=== PATIENT | male | born 1945 | race Caucasian/White ===

== ENCOUNTER → 2019-07-17 | Outpatient (CLI) | payer OTHER ==
--- NOTE | 2019-07-18 00:02 | ECHO ---
DATE OF PROCEDURE: 07/17/2019 DATE OF : 1945 AGE: 74 REFERRING PROVIDER: SU Wolf at [facility] REASON FOR THE ECHOCARDIOGRAM: Hypertension. 2D MEASUREMENTS: IVS: 1.3 cm LV: 4.8 cm LVPW: 1.3 cm LA: 4.2 cm Aorta: 3.1 cm IVC: 2.0 cm DOPPLER MEASUREMENTS: Peak velocity across the aortic valve: 1.9 meters per second Peak velocity across the LVOT: 0.8 meters per second Peak gradient across the aortic valve: 15 mmHg Mean gradient across the aortic valve: 8 mmHg Mitral E: 1.1, Mitral A: 0.75 with a ratio of 1.4 Maximum tricuspid valve velocity: 2.6 meters per second 2D COMMENTS: 1. Normal left ventricular size with mildly increased left ventricular wall thickness and a normal global left ventricular systolic function. The estimated left ventricular systolic ejection fraction is 60-65%. 2. Mildly enlarged left atrium. Normal right atrium and right ventricle. 3. The atrial septum appeared to be normal without evidence of defect or shunt. 4. Normal aortic root. 5. No pericardial effusion seen. 6. Mildly calcified aortic valve with normal leaflet excursion. Mildly calcified mitral annulus with normal anterior mitral valve leaflet motion. Normal tricuspid valve and pulmonic valve. The proximal pulmonary artery branches were not well visualized. 7. The inferior vena cava is borderline enlarged, central venous pressure might be elevated. DOPPLER: It reveals mild mitral regurgitation, mild tricuspid regurgitation, and trace pulmonic regurgitation. The calculated pulmonary artery systolic pressure varies between 30-40 mmHg. Abnormal relaxation pattern was noted across the mitral valve annulus consistent with features of grade 2 left ventricular diastolic dysfunction, left ventricular end-diastolic pressure might be elevated. IMPRESSION: 1. Normal global left ventricular systolic function with mild concentric left ventricular hypertrophy. There were some features of left ventricular diastolic dysfunction, grade 2. 2. Mildly dilated left atrium with mitral annulus calcification and mild mitral regurgitation. 3. Aortic valve sclerosis with trivial aortic stenosis but no aortic regurgitation. 4. Mild tricuspid regurgitation with mild pulmonary hypertension. 5. Trace pulmonic regurgitation.
== END ==
LOC: M CARPUL 09:33
PROVIDERS: ATTEND Registered Nurse Community Health
DX: I12.9 Hypertensive chronic kidney disease with stage 1 through stage 4 chronic kidney disease, or unspecified chronic kidney disease (principal); D64.9 Anemia, unspecified

== ENCOUNTER → 2019-08-10 | Outpatient (CLI) | payer OTHER ==
--- NOTE | 2019-08-10 09:23 | REP ---
RENAL ULTRASOUND WITH DUPLEX DOPPLER RENAL ARTERY EVALUATION: Real-time ultrasound evaluation of the kidneys performed and demonstrates both kidneys to be normal in size and echotexture, right kidney measuring 1.3 x 5.1 x 4.8 cm and left kidney 10.5 x 4.1 x 4.9 cm. There is no hydronephrosis bilaterally. There appears to be an extrarenal pelvis on the right. Cyst in the mid right kidney measures 1.7 x 2.2 x 5 cm and another cyst in the lower pole measures 1 cm in diameter. Prostate measures 3.6 x 3.4 x 4.9 cm for a total volume of 31.4 mL. Ureteral jets are not visualized in the urinary bladder with Doppler color evaluation. Real-time ultrasound evaluation and duplex Doppler interrogation of the renal arteries is performed bilaterally. Peak systolic velocity of the abdominal aorta at the level of the renal arteries is 75.2 cm/s. Peak systolic velocity in the right renal artery is 143 cm/s, renal to aortic ratio 1.9. Resistive indices are measured in the upper, mid, and lower thirds of the right kidney, right kidney 0.81 to 0.90, acceleration times range between 0.03 to 0.05. Peak systolic velocity of the main left renal artery is 85.3 cm/s, renal to aortic ratio 1.13. Origin of the left renal artery is not visualized due to overlying bowel gas. Resistive indices of the left kidney range between 0.82 and 0.84. Acceleration times range between 0.036 and 0.38. Incidental note is made of early bifurcation of the main right renal artery at its mid aspect. IMPRESSION: No hydronephrosis. Two cysts, right kidney. No compelling duplex Doppler sonographic evidence of significant renal artery stenosis. Electronically Signed by Flex Riggs MD 08/10/2019 11:44 A
== END ==
LOC: M RAD 06:21
PROVIDERS: ATTEND Internal Medicine Nephrology
DX: N18.3 Chronic kidney disease, stage 3 (moderate) (principal); I15.0 Renovascular hypertension; N28.1 Cyst of kidney, acquired

== ENCOUNTER → 2019-11-01 | Outpatient (CLI) | payer OTHER ==
[~2019-11-01] MED LIST: PROHANCE 279.3MG/ML 5ML VIAL (A9576) As Ordered ONE
--- NOTE | 2019-11-01 11:25 | REP ---
MRCP exam: MRI abdomen without and with contrast. History: History of CBD stenosis. Abnormal LFTs. No comparison imaging is available. Technique: MRCP acquisition is acquired and maximum intensity projection images are generated. Axial and coronal T1 and T2-weighted scans are obtained. Sequences include spin-echo, fast spin echo, gradient echo, in and [id number] images, and dynamically acquired sequential post contrast images. The gadolinium enhancement dose is 8 mL of intravenous ProHance. MRCP findings: There is moderate intrahepatic and proximal extrahepatic biliary ductal dilation. There is a tapered stricture in the common bile duct proximally just below the juan. The distal common bile duct is seen and normal in caliber in the pancreatic head. The level of the stricture appears to be just superior to the margin of the pancreas. There is mild low signal intensity mass effect on coronal and axial T2-weighted scans at the level of the stricture. There is no evidence of choledocholithiasis. The gallbladder is not seen consistent with surgical absence. No focal liver lesion is seen. Spleen is unremarkable. No adrenal lesion is observed. Parapelvic cysts are seen in the right kidney. Pancreas protocol images. Pre and postcontrast images of the liver and pancreas show contrast enhancement in the lining of the tapered CBD at the level of the stricture. No polypoid intraluminal defect is seen. There are two identifiable lymph nodes adjacent to the biliary stricture in the periportal peripancreatic soft tissues. These measure 10 and 7 mm in short axis dimension respectively. No intrapancreatic mass lesion is observed. The main pancreatic duct is 2-3 mm in caliber. No pancreatic fluid collection is observed. There is some atherosclerotic irregularity in the proximal celiac and SMA branches. No arterial occlusion is seen. The right renal artery is duplicated. Incidental note is made of a filling defect in the intrarenal collecting system of the left kidney. This may be a urothelial neoplasm, a renal pelvic polyp or stone, or conceivably, thrombus. Impression: 1. 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 No pancreatic mass lesion is seen. There are two adjacent lymph nodes however. Pancreatic duct is not significantly dilated. 2. There is a filling defect in the left renal pelvis measuring approximately 12 x 17 mm of uncertain etiology. Consider retrograde pyelogram. There is a parapelvic cyst on the right. Electronically Signed by Fermin Cortez MD 11/01/2019 04:07 P
== END ==
LOC: M RAD 08:06
PROVIDERS: ATTEND Internal Medicine Gastroenterology
DX: K83.1 Obstruction of bile duct (principal)
CPT/HCPCS: 74181; 74183; A9576

== ENCOUNTER → 2020-11-22 | Outpatient (CLI) | payer MEDICARE, OTHER | LOC: M LABSMTC 12:14 | PROVIDERS: ATTEND Nurse Practitioner Family | DX: Z11.52 Encounter for screening for COVID-19 (principal) ==

== ENCOUNTER → 2020-11-28 | Outpatient (CLI) | payer OTHER | LOC: M LABSMTC 09:31 | PROVIDERS: ATTEND Student in an Organized Health Care Education/Training Program | DX: Z01.812 Encounter for preprocedural laboratory examination (principal); Z20.822 Contact with and (suspected) exposure to COVID-19; K83.1 Obstruction of bile duct ==

== ENCOUNTER 2020-12-06 11:37 | Observation (INO) | payer OTHER ==
[~2020-12-06] VITALS: Ht 167.6 cm; Wt 83.2 kg
[2020-12-06] MEDS ORDERED: SPIR-10 PO (11:52)
[2020-12-06] MEDS ORDERED: CHLO125TA PO (11:52)
[2020-12-06] MEDS ORDERED: GLIP5TAB8 (11:52)
[2020-12-06] MEDS ORDERED: TAMS1CAP17 (11:52)
[2020-12-06] MEDS ORDERED: AMLO1TAB25 PO (11:52)
[2020-12-06] MEDS ORDERED: CAPT1TAB17 PO (11:52)
--- NOTE | 2020-12-06 12:15 | REP ---
INDICATION: SEPSIS/SHOCK. COMPARISON: None TECHNIQUE: Portable AP chest with the patient sitting. FINDINGS: The lung atkins are clear. Cardiac size is normal. The raghu, mediastinum and skeletal structures are unremarkable. IMPRESSION: Essentially negative portable chest <Electronically signed by Flex Salas > 12/06/20 [id number]
[2020-12-06 12:34] LABS: HEMATOCRIT 33.5 % (42.0-52.0); HEMOGLOBIN 10.4 g/dl (13.5-17.5); MEAN CORPUSCULAR HEMOGLOBIN 27.4 pg (27.0-33.0); MEAN CORPUSCULAR VOLUME 88.4 fl (80.0-96.0); RED BLOOD COUNT 3.79 10^6/uL (4.30-6.10); WHITE BLOOD COUNT 9.7 10^3/uL (4.0-10.0)
[2020-12-06 12:40] LABS: INR 1.04; PROTHROMBIN TIME 13.8 SECONDS (12.5-14.3)
[2020-12-06 12:41] LABS: PARTIAL THROMBOPLASTIN TIME 31.1 SECONDS (24.2-38.5)
[2020-12-06 12:48] LABS: PLATELET COUNT, AUTOMATED 82 10^3/uL (150-450)
[2020-12-06 12:52] LABS: EOSINOPHILS 2 % (0-3); LYMPHOCYTES 7 % (16-44); MONOCYTES 7 % (0-5); NEUTROPHILS 84 % (28-66); PLATELET ESTIMATE DECREASED (NORMAL)
[2020-12-06 12:53] LABS: ANISOCYTOSIS 1+
[2020-12-06 12:56] LABS: ALT/SGPT 86 U/L (12-78); AMYLASE 41 U/L (25-115); BILIRUBIN,DIRECT 0.3 MG/DL (0.0-0.2); BILIRUBIN,TOTAL 0.6 MG/DL (0.2-1.0); BLOOD UREA NITROGEN 51 MG/DL (7-18); CALCIUM LEVEL 8.2 MG/DL (8.8-10.2); CARBON DIOXIDE LEVEL 21 MEQ/L (21-32); CHLORIDE LEVEL 107 MEQ/L (98-107); CK-MB VALUE MASS < 1.0 NG/ML (<3.6); CPK CREATINE PHOSPHOKINASE 38 U/L (39-308); GLOMERULAR FILTRATION RATE 39.2 (>42); GLUCOSE, FASTING 153 MG/DL (70-100); MB/CK RELATIVE INDEX 2.63 (< OR =4); POTASSIUM SERUM 3.8 MEQ/L (3.5-5.1); SODIUM LEVEL 137 MEQ/L (136-145); TOTAL PROTEIN 6.4 GM/DL (6.4-8.2); TROPONIN I < 0.02 NG/ML (< 0.10)
[2020-12-06 12:57] LABS: C REACTIVE PROTEIN QUANTITATIV 9.53 MG/DL (0.00-0.30)
[2020-12-06] MEDS ORDERED: IMIPENEM/CILASTATIN 500 MG in D5W MINI-BAG PLUS 100 ML IV ONE (13:15)
[2020-12-06] MEDS ORDERED: GLIP2.5T6 PO (13:32)
[2020-12-06] MEDS ORDERED: NS 1,000 ML IV ONE (13:55)
[2020-12-06 14:21] LABS: RSV AMPLIFICATION NEGATIVE (NEGATIVE)
[2020-12-06] MEDS ORDERED: ACETAMINOPHEN TAB 650MG DOSE (2X325MG) PO PRN (15:55)
[2020-12-06] MEDS ORDERED: MOM 30ML SUSPENSION UDC PO PRN (15:55)
[2020-12-06] MEDS ORDERED: MAALOX 30 ML SUSP *UDC PO PRN (15:55)
--- NOTE | 2020-12-06 16:56 | HPEPDOC ---
[facility] Medical History & Physical Date of Admission Dec 06, 2020 Date of Service: Dec 06, 2020 History and Physical CHIEF COMPLAINT: fevers, chills. positive blood cultures at outside hospital. HISTORY OF PRESENT ILLNESS: 75 yo M with a hx of HTN, DM2, CKD 3, testiculara cancer, liver disease (unspecified), numerous biliary stents/ERCP, presented to [facility] after he was informed of positive blood cultures from [facility], for enterobacteriacea/E.coli from 12/05/20. Patient received a liver biopsy at [facility] for workup of possible hepatic malignancy. He developed fevers, chills, malaise and diarrhea, with a Tmax at home of 102. On arrival to [facility] 12/05/20, CT abdo did now show acute hepatic abnormality (ie hematoma, abscess). Blood cultures were drawn, 1/2 bottles positive and transfered to [facility]. He was DC with PO keflex. On 12/06/20, lab called patient to inform of positive enterobacteriacea/E.coli in 1/2 culture bottles. patient did not wish to return to [facility] or [place], told to come to [facility]. Patient reports mild abdominal discomfort, as well diarrhea, without fevers, chills, n/v/d, chest pain, or shortness of breath. patient denies blood per rectum. he is afebrile. Labs reviewed. WBC 9.7. Hgb 10.4. Hct 33.5. PLT 82. Na 137. K 3.8. BUN 51. cr 1.80. 42. ALT 86. ALP 233. D bili 0.3. T bili 0.6. Blood cultures drawn. pateint was given one dose of imipenem. Patient is a poor historian. Request records from [facility] for completeness. Patient will be admitted for observation 2/2 possible E coli bacteremia. PAST MEDICAL HISTORY: HTN DM2 CK3 Liver disease Heart disease PAST SURGICAL HISTORY: ERCP Lithotripsy SOCIAL HISTORY: Denies smoking, etoh use, illicits FAMILY HISTORY: reviewed with patient, denies relevant family history ALLERGIES: Please see below. REVIEW OF SYSTEMS: 10 point ROS completed, relevant findings noted in the HPI HOME MEDICATIONS: Please see below. PHYSICAL EXAMINATION: VITAL SIGNS: please see below General: NAD, comfortable HEENT: PERRLA, EOMI, sclerae clear Neck: supple, normal ROM, no JVD Respiratory: lungs CTAB, no wheeze, no rales, no crackles CVS: RRR, normal S1, S2, no murmurs Abdo: mild RUQ tenderness, no organomegaly, no rigidity, no rebound tenderness Extremities: no edema, pulses 2+ MSK: no joint deformities, normal ROM Neuro: no focal neuro deficits, moving all 4 extremities, CN2-12 intact. Strength 5/5 in all 4 extremities. No nystagmus. Psych: calm, cooperative, AAO x 3 LABORATORY DATA: See below. IMAGING: CXR (12/06/20): FINDINGS: The lung atkins are clear. Cardiac size is normal. The raghu, mediastinum and skeletal structures are unremarkable. IMPRESSION: Essentially negative portable chest MICROBIOLOGY: Please see below. ASSESSMENT: 75-year-old male with a past medical history of hypertension, diabetes type 2 CK3 D3. Recent biopsy of the liver. On 12/02/20, presenting from [facility] with 1 out of 2 positive blood cultures for Escherichia coli/Enterobacteriaceae. Given one dose of imipenem. Admitted to hospitalist service.\ PLAN: #Transient Bacteremia with Enterobacteriacea/E coli - detected in 1/2 cultures at [facility] - in context of liver bx at [facility] on 12/02/20 - patient experience fevers, chills, and diarrhea since then - no hx of abx use - s/p imipenem in ER - blood cultures sent prior to abx - patient is presently afebrile without leukocytosis - CT abomen obtain at [facility] on 12/05/20 not showing acute hepatic or biliary abnormality - will obtain Liver US to assess for developed of perihepatic/capsular collection vs hematoma - if develops fevers, leukocytosis, will repeat CT abdio - obtain records from [facility] upsate - D/w esperanza Muniz to continue meropenem. Will await final C&S if available from [place] or at [facility]. #Transaminitis - mild AST/ALT - ALP 233 - per patient, GI at [facility] working up questionable liver mass? - no mass seen on CT abdo at [place] on 12/06/20 - will f/u with GI at [facility] on DC - trend CMP #Anemia - Hgb 10.4, improved from 12/05/20 at [facility] (up from 9.5) - check iron, folate, b12 - check fecal occult blood #CKD 3: - Cr 1.80. - baseline unknown at this time - avoid nephrotoxins #HTN - BP 156/72 at this time - home regimen: amlodipine 10 mg daily, captoprol 25 mg bid, chlorthalidone 25 mg 12.5 mg 3xw, spironolactone 12.5 mg 3xw - resume amlodipine - will obtain labs from OSH, resume captopril, chlorthalidone and spironolactone once baseline Cr is known #DM2 - ISS, AC and HS - CC diet - hold oral meds #Thrombocytopenia - PLT 82 - INR 1.04 Dispo: pending clinical improvement Vital Signs Vital Signs Date Time Temp Pulse Resp B/P (MAP) Pulse Ox O2 Delivery O2 Flow Rate FiO2 12/06/20 12:22 12/06/20 11:37 98.0 92 20 99 Room Air Laboratory Data Labs 24H Laboratory Tests 2 12/06/20 11:53: Neutrophils (%) (Auto) , Nucleated Red Blood Cells % (auto) 0.0, Neutrophils 84H, Lymphocytes (Manual) 7L, Monocytes (Manual) 7H, Eosinophils (Manual) 2, Anisocytosis 1+, Platelet Estimate DECREASED, Immature Platelet Fraction 5.1, Prothrombin Time 13.8, Prothromb Time International Ratio 1.04, Activated Partial Thromboplast Time 31.1, Anion Gap 9, Glomerular Filtration Rate 39.2L, Lactic Acid Level 1.3, Calcium Level 8.2L, Total Bilirubin 0.6, Direct Bilirubin 0.3H, Aspartate Amino Transf (AST/SGOT) 42H, Alanine Aminotransferase (ALT/SGPT) 86H, Alkaline Phosphatase 233H, Total Creatine Kinase 38L, Creatine Kinase MB < 1.0, Creatine Kinase MB Relative Index 2.63, Troponin I < 0.02, C-Reactive Protein, Quantitative 9.53H, Total Protein 6.4, Albumin 3.0L, Albumin/Globulin Ratio 0.9, Amylase Level 41 12/06/20 13:26: Coronavirus (COVID-19)(PCR) NEGATIVE, Influenza Type A (RT-PCR) NEGATIVE, Influenza Type B (RT-PCR) NEGATIVE, Respiratory Syncytial Virus (PCR) NEGATIVE CBC/BMP Laboratory Tests 12/06/20 11:53 Microbiology Microbiology 12/06/20 Blood Culture, Received Pending 12/06/20 Blood Culture, Received Pending Home Medications Scheduled Amlodipine Besylate (Amlodipine Besylate) 10 Mg Tablet, 10 MG PO QHS Captopril (Captopril) 12.5 Mg Tablet, 1 TAB PO BID for high blood pressure Chlorthalidone (Chlorthalidone) 25 Mg Tablet, 12.5 MG PO 3XW MON, WED, FRI Ciprofloxacin HCl (Ciprofloxacin HCl) 250 Mg Tablet, 250 MG PO BID Glipizide (Glipizide ER) 2.5 Mg Tab.er.24, 2.5 MG PO DAILY Spironolactone (Spironolactone) 25 Mg Tablet, 12.5 MG PO 3XW MON, WED, FRI Allergies Coded Allergies: amoxicillin (Verified Allergy, Mild, rash, 12/06/20) A-FIB/CHADSVASC A-FIB History Current/History of A-Fib/PAF?: No Current PO Anticoag Therapy: No JUDY SOSA MD Dec 06, 2020 16:56
[2020-12-06 17:05] LABS: APPEARANCE, URINE CLEAR (CLEAR); BACTERIA, URINE AUTO NEGATIVE (NEGATIVE); BILIRUBIN, URINE AUTO NEGATIVE (NEGATIVE); BLOOD, URINE BLOOD NEGATIVE (NEGATIVE); COLOR, URINE YELLOW (YELLOW); GLUCOSE, URINE (UA) AUTO NEGATIVE (NEGATIVE); KETONE, URINE AUTO NEGATIVE (NEGATIVE); LEUKOCYTE ESTERASE, URINE AUTO NEGATIVE (NEGATIVE); NITRITE, URINE AUTO NEGATIVE (NEGATIVE); PROTEIN, URINE AUTO NEGATIVE (NEGATIVE); RBC, URINE AUTO 1 /HPF (0-3); SPECIFIC GRAVITY URINE AUTO 1.013 (1.002-1.035); SQUAMOUS EPITHELIAL CELL UR AU 0 /HPF (0-6); UROBILINOGEN, URINE AUTO 0.2 mg/dL (0.0-2.0); WBC, URINE AUTO 1 /HPF (0-3)
[2020-12-06] MEDS ORDERED: DEXTROSE 50% 50 ML SYRINGE IV PRN (17:25)
[2020-12-06] MEDS ORDERED: GLUCAGON INJ 1MG VIAL SC PRN (17:25)
[2020-12-06] MEDS ORDERED: GLUCOSE 4GM CHEW TABLET PO PRN (17:25)
[2020-12-06] MEDS: HumaLOG INSULIN (NovoLOG) PER UNIT SC SCH ×2 (17:30→21:00)
[2020-12-06 18:00] VITALS: BP 148/62
[2020-12-06] MEDS: DOCUSATE SODIUM 100MG CAPSULE PO SCH (21:00)
[2020-12-06 22:00] VITALS: BP 143/67
[2020-12-06] MEDS ORDERED: HEPARIN SOD (PORCINE) 5000UNITS/ML 1ML VIAL/SYRINGE SC SCH (22:00)
[2020-12-06] MEDS: MEROPENEM INJ 1 GM in IV 1 EA IV SCH (22:10)
[2020-12-07 06:00] VITALS: BP 140/68
[2020-12-07 07:05] LABS: BASO % 0.4 % (0.0-1.0); EOS # 0.2 10^3/uL (0.0-0.5); EOS % 2.4 % (0.0-3.0); HEMATOCRIT 30.4 % (42.0-52.0); HEMOGLOBIN 9.5 g/dl (13.5-17.5); LYMPH # 0.8 10^3/uL (1.5-5.0); LYMPH % 11.5 % (24.0-44.0); MEAN CORPUSCULAR HEMOGLOBIN 27.2 pg (27.0-33.0); MEAN CORPUSCULAR HGB CONC 31.3 g/dl (32.0-36.5); MEAN CORPUSCULAR VOLUME 87.1 fl (80.0-96.0); MONO # 0.8 10^3/uL (0.0-0.8); MONO % 10.7 % (2.0-8.0); NEUTROPHILS # 5.2 10^3/uL (1.5-8.5); NEUTROPHILS % 74.1 % (36.0-66.0); RED BLOOD COUNT 3.49 10^6/uL (4.30-6.10)
[2020-12-07 07:23] LABS: ALBUMIN 2.4 GM/DL (3.2-5.2); BILIRUBIN,TOTAL 0.6 MG/DL (0.2-1.0); CREATININE FOR GFR 1.57 MG/DL (0.70-1.30); TOTAL PROTEIN 5.3 GM/DL (6.4-8.2)
[2020-12-07 07:25] LABS: PLATELET COUNT, AUTOMATED 74 10^3/uL (150-450)
--- NOTE | 2020-12-07 08:04 | REP ---
INDICATION: transient bacteremia s/p liver bx on 12/02/20.. COMPARISON: None. TECHNIQUE: Multiple sonographic images of the abdominal right upper quadrant FINDINGS: There is a cholecystectomy. The common biliary duct contains longitudinal linear echoes suggestive of a stent or catheter. We are unable to measure the common duct diameter. However, intrahepatic biliary duct dilatation is suspected. The hepatic parenchyma is homogeneous. The pancreas is obscured by bowel gas. The right kidney measures 11.5 x 5.2 x 5.3 cm and is normal size. There is a 3.2 cm right renal Bosniak type 1 cyst. There is no right renal solid mass. There is no right renal hydronephrosis or calculus. There is no right upper quadrant abdominal free fluid. IMPRESSION: Cholecystectomy. Probable common biliary duct stent versus catheter. Probable intrahepatic biliary duct dilatation. Right renal Bosniak type 1 3.2 cm cyst. Pancreas is obscured by bowel gas. <Electronically signed by Flex Salas > 12/07/20 0800
[2020-12-07] MEDS: HumaLOG INSULIN (NovoLOG) PER UNIT SC SCH ×4 (08:32→21:00)
[2020-12-07] MEDS: DOCUSATE SODIUM 100MG CAPSULE PO SCH ×2 (09:00→21:00)
--- NOTE | 2020-12-07 11:11 | IPNPDOC ---
Date Seen The patient was seen on 12/07/20. Progress Note SUBJECTIVE: Patient was seen and examined at bedside. No acute events overnight. Telemetry did not bradycardia down to the mid 40s. Patient states that he has been bradycardic for many years. He is asymptomatic, does not report any dizziness, lightheadedness. Bradycardia. Bradycardia occur mainly when he is asleep. Follows with Dr. Tinsley. Patient denies any chest pain, chest breath, palpitations, nausea, vomiting or diarrhea. He doesn't have any abdominal pain OBJECTIVE PHYSICAL EXAMINATION: VITAL SIGNS: please see below General: NAD, comfortable HEENT: PERRLA, EOMI, sclerae clear Neck: supple, normal ROM, no JVD Respiratory: lungs CTAB, no wheeze, no rales, no crackles CVS: RRR, normal S1, S2, no murmurs Abdo: soft, no masses, no hepatosplenomegaly, BS+, no rebound tenderness Extremities: no edema, pulses 2+ MSK: no joint deformities, normal ROM Neuro: no focal neuro deficits, moving all 4 extremities, CN2-12 intact. Strength 5/5 in all 4 extremities. No nystagmus. Psych: calm, cooperative, AAO x 3 LABORATORY DATA, IMAGING STUDIES, MICROBIOLOGY: Please see below. Liver US (12/07/20): IMPRESSION: Cholecystectomy. Probable common biliary duct stent versus catheter. Probable intrahepatic biliary duct dilatation. Right renal Bosniak type 1 3.2 cm cyst. Pancreas is obscured by bowel gas. DVT prophylaxis ordered?: SCDs and TEDs ASSESSMENT AND PLAN: 75-year-old male with a past medical history of hypertension, diabetes type 2 CK3 D3. Recent biopsy of the liver. On 12/02/20, presenting from [facility] with 1 out of 2 positive blood cultures for Escherichia coli/Enterobacteriaceae. Given one dose of imipenem. Admitted to hospitalist service.\ PLAN: #Transient Bacteremia with Enterobacteriacea/E coli - detected in 1/2 cultures at [facility] - in context of liver bx at [facility] on 12/02/20 - patient experience fevers, chills, and diarrhea since then - no hx of abx use - s/p imipenem in ER - blood cultures sent prior to abx - patient is presently afebrile without leukocytosis - CT abomen obtain at [facility] on 12/05/20 not showing acute hepatic or biliary abnormality - Liver US reviewed. Suspected intrahepatic biliary duct dilatation. CBD diameter unable to be measured. Encouraging that transaminases are trending down. Renal cyst. - if develops fevers, leukocytosis, will repeat CT abdio - obtain records from [facility] - D/w esperanza Muniz to continue meropenem. Will await final C&S if available from [place] or at [facility]. #Transaminitis - transaminases and ALP trending down - per patient, GI at [facility] working up questionable liver mass? - no mass seen on CT abdo at [place] on 12/06/20 - will f/u with GI at [facility] on DC #Anemia - Hgb 10.4, 9.5 - check iron, folate, b12 - check fecal occult blood #CKD 3: - Cr 1.80 improving to 1 - baseline unknown at this time - avoid nephrotoxins #HTN - BP 156/72 at this time - home regimen: amlodipine 10 mg daily, captoprol 25 mg bid, chlorthalidone 25 mg 12.5 mg 3xw, spironolactone 12.5 mg 3xw - resume amlodipine - will obtain labs from OSH, resume captopril, chlorthalidone and spironolactone once baseline Cr is known #DM2 - ISS, AC and HS - CC diet - hold oral meds #Thrombocytopenia - PLT 82, 74 - INR 1.04 - check DIC panel - peripheral smear ordered - no obvious signs of bleeding Dispo: pending clinical improvement VS, I&O, 24H, Fishbone Vital Signs/I&O Vital Signs Date Time Temp Pulse Resp B/P (MAP) Pulse Ox O2 Delivery O2 Flow Rate FiO2 12/07/20 06:00 98.8 68 20 140/68 (92) 98 Room Air I&O- Last 24 Hours up to 6 AM 12/07/20 06:00 Intake Total 1760 ml Output Total 800 ml Balance 960 ml Laboratory Data 24H LABS Laboratory Tests 2 12/06/20 11:53: Neutrophils (%) (Auto) , Nucleated Red Blood Cells % (auto) 0.0, Neutrophils 84H, Lymphocytes (Manual) 7L, Monocytes (Manual) 7H, Eosinophils (Manual) 2, Anisocytosis 1+, Platelet Estimate DECREASED, Immature Platelet Fraction 5.1, Prothrombin Time 13.8, Prothromb Time International Ratio 1.04, Activated Partial Thromboplast Time 31.1, Anion Gap 9, Glomerular Filtration Rate 39.2L, Lactic Acid Level 1.3, Calcium Level 8.2L, Total Bilirubin 0.6, Direct Bilirubin 0.3H, Aspartate Amino Transf (AST/SGOT) 42H, Alanine Aminotransferase (ALT/SGPT) 86H, Alkaline Phosphatase 233H, Total Creatine Kinase 38L, Creatine Kinase MB < 1.0, Creatine Kinase MB Relative Index 2.63, Troponin I < 0.02, C-Reactive Protein, Quantitative 9.53H, Total Protein 6.4, Albumin 3.0L, Albumin/Globulin Ratio 0.9, Amylase Level 41 12/06/20 13:26: Coronavirus (COVID-19)(PCR) NEGATIVE, Influenza Type A (RT-PCR) NEGATIVE, Influenza Type B (RT-PCR) NEGATIVE, Respiratory Syncytial Virus (PCR) NEGATIVE 12/06/20 16:54: Urine Color YELLOW, Urine Appearance CLEAR, Urine pH 5.0, Urine Specific [place] 1.013, Urine Protein NEGATIVE, Urine Glucose (Auto)(UA) NEGATIVE, Urine Ketones (Auto) NEGATIVE, Urine Blood NEGATIVE, Urine Nitrite NEGATIVE, Urine Bilirubin NEGATIVE, Urine Urobilinogen 0.2, Urine Leukocyte Esterase (Auto) NEGATIVE, Ur ine WBC (Auto) 1, Urine RBC (Auto) 1, Urine Hyaline Casts (Auto) 0, Urine Bacteria (Auto) NEGATIVE, Urine Squamous Epithelial Cells 0, Urine Sperm (Auto) 12/06/20 18:12: Bedside Glucose (Misc Panel) 128H 12/06/20 20:29: Bedside Glucose (Misc Panel) 150H 12/07/20 06:14: Immature Granulocyte % (Auto) 0.9, Neutrophils (%) (Auto) 74.1H, Lymphocytes (%) (Auto) 11.5L, Monocytes (%) (Auto) 10.7H, Eosinophils (%) (Auto) 2.4, Basophils (%) (Auto) 0.4, Neutrophils # (Auto) 5.2, Lymphocytes # (Auto) 0.8L, Monocytes # (Auto) 0.8, Eosinophils # (Auto) 0.2, Basophils # (Auto) 0.0, Nucleated Red Blood Cells % (auto) 0.0, Anion Gap 9, Glomerular Filtration Rate 46.0, Calcium Level 8.0L, Magnesium Level 2.0, Total Bilirubin 0.6, Aspartate Amino Transf (AST/SGOT) 46H, Alanine Aminotransferase (ALT/SGPT) 74, Alkaline Phosphatase 195H, Total Protein 5.3L, Albumin 2.4L, Albumin/Globulin Ratio 0.8 CBC/BMP Laboratory Tests 12/06/20 11:53 12/07/20 06:14 Microbiology Microbiology 12/06/20 Urine Culture, Received Pending 12/06/20 Blood Culture, Received Pending 12/06/20 Blood Culture, Received Pending JUDY SOSA MD Dec 07, 2020 11:11
[2020-12-07] MEDS: MEROPENEM INJ 1 GM in IV 1 EA IV SCH ×2 (12:02→22:02)
[2020-12-07 12:39] LABS: PLATELET COUNT, AUTOMATED 82 10^3/uL (150-450)
[2020-12-07 12:48] LABS: INR 1.07; PROTHROMBIN TIME 14.1 SECONDS (12.5-14.3)
[2020-12-07 12:49] LABS: FIBRINOGEN 658 MG/DL (221-452); PARTIAL THROMBOPLASTIN TIME 30.8 SECONDS (24.2-38.5)
[2020-12-07 13:31] LABS: D-DIMER QUANT > 4000 ng/ml (<500)
[2020-12-07 14:00] VITALS: BP 141/67
[2020-12-07 22:00] VITALS: BP 144/66
[2020-12-08 05:52] LABS: HEMATOCRIT 30.3 % (42.0-52.0); HEMOGLOBIN 9.4 g/dl (13.5-17.5); MEAN CORPUSCULAR HEMOGLOBIN 27.2 pg (27.0-33.0); MEAN CORPUSCULAR VOLUME 87.6 fl (80.0-96.0); RED BLOOD COUNT 3.46 10^6/uL (4.30-6.10); WHITE BLOOD COUNT 6.6 10^3/uL (4.0-10.0)
[2020-12-08 05:54] LABS: PLATELET COUNT, AUTOMATED 90 10^3/uL (150-450)
[2020-12-08 06:00] VITALS: BP 142/65
[2020-12-08 06:22] LABS: ALBUMIN 2.4 GM/DL (3.2-5.2); BILIRUBIN,TOTAL 0.4 MG/DL (0.2-1.0); CALCIUM LEVEL 7.9 MG/DL (8.8-10.2); CREATININE FOR GFR 1.46 MG/DL (0.70-1.30); MAGNESIUM LEVEL 2.1 MG/DL (1.8-2.4); TOTAL PROTEIN 5.3 GM/DL (6.4-8.2)
[2020-12-08 06:42] LABS: ATYPICAL LYMPH 5 % (0-5); EOSINOPHILS 8 % (0-3); LYMPHOCYTES 15 % (16-44); MONOCYTES 3 % (0-5); NEUTROPHILS 65 % (28-66)
[2020-12-08 06:44] LABS: HYPOCHROMASIA 1+; PLATELET ESTIMATE DECREASED (NORMAL); POIKILOCYTOSIS 1+
[2020-12-08 06:45] LABS: ANISOCYTOSIS 1+
--- NOTE | 2020-12-08 08:01 | ECGEPIP ---
[facility] - ED Test Date: 2020-12-06 Pat Name: JULIANA POP Department: Room: - Gender: Male [employer]: RICKEY : 1945 Requested By: ALEXANDREA Slaughter Order Number: [id number] Reading MD: Jasmyn Duran Measurements Intervals [place] Rate: 59 P: 45 CT: 176 QRS: -50 QRSD: 124 T: 79 QT: 418 QTc: 413 Interpretive Statements Sinus bradycardia baseline artifact may affect interpretation Left anterior fascicular block Left ventricular hypertrophy with QRS widening ( R in aVL , Ian product ) no prior Electronically Signed on 12-08-2020 8:00:49 EDT by Jasmyn Duran
[2020-12-08] MEDS: HumaLOG INSULIN (NovoLOG) PER UNIT SC SCH ×4 (08:27→21:00)
[2020-12-08] MEDS: DOCUSATE SODIUM 100MG CAPSULE PO SCH ×2 (08:27→21:00)
--- NOTE | 2020-12-08 09:06 | REP ---
INDICATION: elevate d dimer, fibrnogen, r/o DVT COMPARISON: None. FINDINGS: The deep veins demonstrate normal compression, normal Doppler color flow and normal Doppler waveforms with respiration augmentation at multiple levels from the popliteal veins to the common femoral veins bilaterally. IMPRESSION: There is no deep vein thrombus in the right or left lower extremities. <Electronically signed by Flex Salas > 12/08/20 0902
[2020-12-08] MEDS: MEROPENEM INJ 1 GM in IV 1 EA IV SCH ×2 (10:23→21:59)
[2020-12-08 14:00] VITALS: BP 170/71
--- NOTE | 2020-12-08 14:39 | IPNPDOC ---
Date Seen The patient was seen on 12/08/20. Progress Note SUBJECTIVE: Patient was seen and examined at bedside. No acute events overnight. Telemetry did not bradycardia down to the mid 40s. Patient states that he has been bradycardic for many years. He is asymptomatic, does not report any dizziness, lightheadedness. Bradycardia. Bradycardia occur mainly when he is asleep. Follows with Dr. Tinsley. Patient denies any chest pain, chest breath, palpitations, nausea, vomiting or diarrhea. He doesn't have any abdominal pain OBJECTIVE PHYSICAL EXAMINATION: VITAL SIGNS: please see below General: NAD, comfortable HEENT: PERRLA, EOMI, sclerae clear Neck: supple, normal ROM, no JVD Respiratory: lungs CTAB, no wheeze, no rales, no crackles CVS: RRR, normal S1, S2, no murmurs Abdo: soft, no masses, no hepatosplenomegaly, BS+, no rebound tenderness Extremities: no edema, pulses 2+ MSK: no joint deformities, normal ROM Neuro: no focal neuro deficits, moving all 4 extremities, CN2-12 intact. Strength 5/5 in all 4 extremities. No nystagmus. Psych: calm, cooperative, AAO x 3 LABORATORY DATA, IMAGING STUDIES, MICROBIOLOGY: Please see below. Liver US (12/07/20): IMPRESSION: Cholecystectomy. Probable common biliary duct stent versus catheter. Probable intrahepatic biliary duct dilatation. Right renal Bosniak type 1 3.2 cm cyst. Pancreas is obscured by bowel gas. DVT prophylaxis ordered?: SCDs and TEDs ASSESSMENT AND PLAN: 75-year-old male with a past medical history of hypertension, diabetes type 2 CK3 D3. Recent biopsy of the liver. On 12/02/20, presenting from [facility] with 1 out of 2 positive blood cultures for Escherichia coli/Enterobacteriaceae. Given one dose of imipenem. Admitted to hospitalist service.\ PLAN: #Transient Bacteremia with Enterobacteriacea/E coli - detected in 1/2 cultures at [facility] - in context of liver bx at [facility] on 12/02/20 - patient experience fevers, chills, and diarrhea since then - no hx of abx use - s/p imipenem in ER - blood cultures sent prior to abx - patient is presently afebrile without leukocytosis - CT abomen obtain at [facility] on 12/05/20 not showing acute hepatic or biliary abnormality - Liver US reviewed. Suspected intrahepatic biliary duct dilatation. CBD diameter unable to be measured. Encouraging that transaminases are trending down. Renal cyst. - if develops fevers, leukocytosis, will repeat CT abdo - obtain records from [facility] - D/w Dr. Breen, ok to continue meropenem. Will await final C&S if available from [facility] or at [facility]. #Transaminitis - transaminases and ALP trending down - per patient, GI at [facility] working up questionable liver mass? - no mass seen on CT abdo at [facility] on 12/06/20 - will f/u with GI at [facility] on DC #Anemia - Hgb 10.4, 9.5 - Iron level 9. Ferritin 210 - Fecal occult blood negative in stool - start IV iron 250 mg x 2 days #CKD 3: - Cr 1.80 on arrival, improving, down to 1.46. - baseline unknown - avoid nephrotoxins #HTN - BP well controlled. - home regimen: amlodipine 10 mg daily, captoprol 25 mg bid, chlorthalidone 25 mg 12.5 mg 3xw, spironolactone 12.5 mg 3xw - resume amlodipine - will obtain labs from OSH, resume captopril, chlorthalidone and spironolactone once baseline Cr is known #DM2 - ISS, AC and HS - CC diet - hold oral meds #Thrombocytopenia - PLT 82, 74, 82, 90 - INR 1.04 - D dimer > 4000 - Fibrinogen 650 - peripheral smear ordered - no obvious signs of bleeding - D/w Dr. Armenta, hematology. Recommends to monitor in setting of bacteremia. Does not believe it to be DIC. - Bilateral venous duplex shows no DVT #Elevated D dimer - D/w Dr. Cantu, non specific finding, recommends trending. - in setting of recent liver Bx. - patient is not hypoxic, not hypotensive, not tachycardia - Low Risk Wells score PE - Bilateral venous duplex negative for DVT Dispo: pending clinical improvement VS, I&O, 24H, Fishbone Vital Signs/I&O Vital Signs Date Time Temp Pulse Resp B/P (MAP) Pulse Ox O2 Delivery O2 Flow Rate FiO2 12/08/20 06:00 98.7 57 16 142/65 (90) 97 Room Air I&O- Last 24 Hours up to 6 AM 12/08/20 06:00 Intake Total 1900 ml Output Total 1425 ml Balance 475 ml Laboratory Data 24H LABS Laboratory Tests 2 12/07/20 17:11: Bedside Glucose (Misc Panel) 112H 12/07/20 20:09: Bedside Glucose (Misc Panel) 127H 12/08/20 05:31: Neutrophils (%) (Auto) , Nucleated Red Blood Cells % (auto) 0.0, Neutrophils 65, Band Neutrophils 4, Lymphocytes (Manual) 15L, Monocytes (Manual) 3, Eosinophils (Manual) 8H, Atypical Lymphocytes 5, Hypochromasia 1+, Poikilocytosis 1+, Ani socytosis 1+, Platelet Estimate DECREASED, Anion Gap 7L, Glomerular Filtration Rate 50.0, Calcium Level 7.9L, Magnesium Level 2.1, Total Bilirubin 0.4, Aspartate Amino Transf (AST/SGOT) 49H, Alanine Aminotransferase (ALT/SGPT) 77, Alkaline Phosphatase 227H, Total Protein 5.3L, Albumin 2.4L, Albumin/Globulin Ratio 0.8 12/08/20 11:05: Bedside Glucose (Misc Panel) 159H CBC/BMP Laboratory Tests 12/08/20 05:31 Microbiology Microbiology 12/07/20 Stool Occult Blood (STEFFI) - Final, Complete 12/06/20 Urine Culture - Final, Complete 12/06/20 Blood Culture - Preliminary, Resulted No Growth after 48 hours. All Specime... 12/06/20 Blood Culture - Preliminary, Resulted No Growth after 48 hours. All Specime... JUDY SOSA MD Dec 08, 2020 14:39
[2020-12-08] MEDS ORDERED: IRON SUCROSE 100MG 5ML VIAL (J1756 PER 1MG) IV SCH (14:40)
[2020-12-08] MEDS: IRON SUCROSE 250 MG in NS 250 ML IV SCH ×2 (17:43→20:02)
[2020-12-08 17:46] VITALS: BP 166/70
[2020-12-08 22:00] VITALS: BP 169/70
[2020-12-09 06:00] VITALS: BP 151/65
[2020-12-09 06:06] LABS: HEMATOCRIT 31.1 % (42.0-52.0); HEMOGLOBIN 9.8 g/dl (13.5-17.5); MEAN CORPUSCULAR HEMOGLOBIN 27.3 pg (27.0-33.0); MEAN CORPUSCULAR HGB CONC 31.5 g/dl (32.0-36.5); MEAN CORPUSCULAR VOLUME 86.6 fl (80.0-96.0); PLATELET COUNT, AUTOMATED 114 10^3/uL (150-450); RED BLOOD COUNT 3.59 10^6/uL (4.30-6.10); WHITE BLOOD COUNT 6.4 10^3/uL (4.0-10.0)
[2020-12-09 06:22] LABS: ALBUMIN 2.4 GM/DL (3.2-5.2); BILIRUBIN,TOTAL 0.4 MG/DL (0.2-1.0); CALCIUM LEVEL 7.9 MG/DL (8.8-10.2); CREATININE FOR GFR 1.65 MG/DL (0.70-1.30); GLOMERULAR FILTRATION RATE 43.4 (>42); POTASSIUM SERUM 4.5 MEQ/L (3.5-5.1); TOTAL PROTEIN 5.3 GM/DL (6.4-8.2)
[2020-12-09 06:44] LABS: ANISOCYTOSIS 1+; ATYPICAL LYMPH 2 % (0-5); EOSINOPHILS 6 % (0-3); LYMPHOCYTES 16 % (16-44); MONOCYTES 11 % (0-5); NEUTROPHILS 65 % (28-66); PLATELET ESTIMATE DECREASED (NORMAL)
[2020-12-09] MEDS: HumaLOG INSULIN (NovoLOG) PER UNIT SC SCH ×2 (08:32→12:00)
[2020-12-09] MEDS: IRON SUCROSE 250 MG in NS 250 ML IV SCH (08:32)
[2020-12-09] MEDS: DOCUSATE SODIUM 100MG CAPSULE PO SCH (08:33)
[2020-12-09 09:38] LABS: FOLATE 14.5 NG/ML (>5.4)
[2020-12-09] MEDS ORDERED: CIPR250T3 PO ×2 (13:19→13:54)
[2020-12-09] MEDS ORDERED: CAPT62TA PO (13:33)
--- NOTE | 2020-12-09 13:57 | DS.PDOC ---
Discharge Summary General Date of Admission Dec 06, 2020 at 11:38 Date of Discharge 12/09/20 Discharge Summary PROCEDURES PERFORMED DURING STAY: [None]. ADMITTING DIAGNOSES: E coli bacteremia Transaminitis Anemia CKD 3 HTN DM2 Thrombocytopenia DISCHARGE DIAGNOSES: E coli bacteremia Transaminitis Anemia CKD 3 HTN DM2 Thrombocytopenia COMPLICATIONS/CHIEF COMPLAINT: Bacteremia. HISTORY OF PRESENT ILLNESS: 75 yo M with a hx of HTN, DM2, CKD 3, testiculara cancer, liver disease (unspecified), numerous biliary stents/ERCP, presented to [facility] after he was informed of positive blood cultures from [facility], for enterobacteriacea/E.coli from 12/05/20. Patient received a liver biopsy at [facility] for workup of possible hepatic malignancy. He developed fevers, chills, malaise and diarrhea, with a Tmax at home of 102. On arrival to [facility] 12/05/20, CT abdo did now show acute hepatic abnormality (ie hematoma, abscess). Blood cultures were drawn, 1/2 bottles positive and transfered to [facility]. He was DC with PO keflex. On 12/06/20, lab called patient to inform of positive enterobacteriacea/E.coli in 1/2 culture bottles. patient did not wish to return to [facility] or [facility], told to come to [facility]. Patient reports mild abdominal discomfort, as well diarrhea, without fevers, chills, n/v/d, chest pain, or shortness of breath. patient denies blood per rectum. he is afebrile. Labs reviewed. WBC 9.7. Hgb 10.4. Hct 33.5. PLT 82. Na 137. K 3.8. BUN 51. cr 1.80. 42. ALT 86. ALP 233. D bili 0.3. T bili 0.6. Blood cultures drawn. pateint was given one dose of imipenem. Patient is a poor historian. Request records from [facility] for completeness. Patient will be admitted for observation 2/2 possible E coli bacteremia. HOSPITAL COURSE: #Transient Bacteremia with Enterobacteriacea/E coli - detected in 1/2 cultures at [facility] - in context of liver bx at [facility] on 12/02/20 - patient experience fevers, chills, and diarrhea since then - no hx of abx use - s/p imipenem in ER - blood cultures sent prior to abx, prelim negative at 48 hours - patient is presently afebrile without leukocytosis - CT abomen obtain at [facility] on 12/05/20 not showing acute hepatic or biliary abnormality - Liver US reviewed. Suspected intrahepatic biliary duct dilatation. CBD diameter unable to be measured. Encouraging that transaminases are trending down. Renal cyst. - obtain records from [facility] - D/w Dr. Breen, ok to continue meropenem, DC on PO regimen once sensitivies are available. - obtained final C&S, placed in chart - Cultures from 12/05/20, positive for e coli. Sensitive to Meropenem, Cipro, flagyl, augmentin - completed 3 days of IV meropenem - vitals repeated prior to DC, T 98.1. - DC home with 7 day course of PO ciprofloxacin 250 mg q12h based on Cr clearance #Transaminitis - transaminases and ALP trending down - per patient, GI at [facility] working up questionable liver mass? - no mass seen on CT abdo at [facility] on 12/06/20 - will f/u with GI at [facility] on DC #Anemia - Hgb 10.4, 9.5 - Iron level 9. Ferritin 210 - Fecal occult blood negative in stool - received IV iron 250 mg x 2 days #MARTINA CKD 3: - improved - baseline unknown - avoid nephrotoxins #HTN - BP well controlled. - home regimen: amlodipine 10 mg daily, captoprol 25 mg bid, chlorthalidone 25 mg 12.5 mg 3xw, spironolactone 12.5 mg 3xw - resume amlodipine - D/w Dr. Guzmán, baseline Cr 1.4 - will f/u in clinic. Resume chlorthalidone 3x/week. Reduce captopril dose to 12.5 mg BID #DM2 - ISS, AC and HS - CC diet - hold oral meds #Thrombocytopenia - improving, PLT 74, increased to 114. - INR 1.04 - D dimer > 4000 - Fibrinogen 650 - peripheral smear ordered, no schistocytes. - no obvious signs of bleeding - D/w Dr. Cantu, hematology. Recommends to monitor in setting of bacteremia. Does not believe it to be DIC. - Bilateral venous duplex shows no DVT #Elevated D dimer - D/w Dr. Cantu, non specific finding, recommends trending. - in setting of recent liver Bx. - patient is not hypoxic, not hypotensive, not tachycardia - Low Risk Wells score PE - Bilateral venous duplex negative for DVT - D/w Dr. Deras, does not recommend anticoagulation, D dimer elevated in setting of transient bacteremia. Dispo: pending clinical improvement DISCHARGE MEDICATIONS: Please see below. ALLERGIES: Please see below. PHYSICAL EXAMINATION ON DISCHARGE: VITAL SIGNS: Please see below. VITAL SIGNS: please see below General: NAD, comfortable HEENT: PERRLA, EOMI, sclerae clear Neck: supple, normal ROM, no JVD Respiratory: lungs CTAB, no wheeze, no rales, no crackles CVS: RRR, normal S1, S2, no murmurs Abdo: soft, no masses, no hepatosplenomegaly, BS+, no rebound tenderness Extremities: no edema, pulses 2+ MSK: no joint deformities, normal ROM Neuro: no focal neuro deficits, moving all 4 extremities, CN2-12 intact. Strength 5/5 in all 4 extremities. No nystagmus. Psych: calm, cooperative, AAO x 3 LABORATORY DATA: Please see below. IMAGING: CXR (12/06/20): TECHNIQUE: Portable AP chest with the patient sitting. FINDINGS: The lung atikns are clear. Cardiac size is normal. The raghu, mediastinum and skeletal structures are unremarkable. IMPRESSION: Essentially negative portable chest Liver US (12/08/20): IMPRESSION: Cholecystectomy. Probable common biliary duct stent versus catheter. Probable intrahepatic biliary duct dilatation. Right renal Bosniak type 1 3.2 cm cyst. Pancreas is obscured by bowel gas. FINDINGS: The deep veins demonstrate normal compression, normal Doppler color flow and normal Doppler waveforms with respiration augmentation at multiple levels from the popliteal veins to the common femoral veins bilaterally. IMPRESSION: There is no deep vein thrombus in the right or left lower extremities. PROGNOSIS: good ACTIVITY: [As tolerated]. DIET: consistent carbohydrate DISCHARGE PLAN: DC home with PCP, nephrology and GI follow up. DISPOSITION: DC home. DISCHARGE INSTRUCTIONS: . Please follow-up with your primary care doctor within 3-5 days . Please follow-up with nephrology Dr. Guzmán within 1-2 weeks . Please follow-up with GI at [facility] in 1-2 weeks. . Please taking medications as prescribed. . If you develop bleeding, chest pain, shortness of breath, seizures, nausea, fevers, or otherwise worsening of your symptoms, please call 911 or return to the nearest emergency room ITEMS TO FOLLOWUP ON ON OUTPATIENT: 1. Final blood cultures from 12/06/20. DISCHARGE CONDITION: Stable TIME SPENT ON DISCHARGE: 35 minutes Vital Signs/I&Os Vital Signs Date Time Temp Pulse Resp B/P (MAP) Pulse Ox O2 Delivery O2 Flow Rate FiO2 12/09/20 06:00 99.0 63 18 151/65 (93) 96 Room Air I&O- Last 24 Hours up to 6 AM 12/09/20 06:00 Intake Total 1002.5 ml Output Total 750 ml Balance 252.5 ml Laboratory Data Labs 24H Laboratory Tests 2 12/08/20 16:50: Bedside Glucose (Misc Panel) 130H 12/08/20 20:26: Bedside Glucose (Misc Panel) 133H 12/09/20 05:36: Neutrophils (%) (Auto) , Nucleated Red Blood Cells % (auto) 0.0, Neutrophils 65, Lymphocytes (Manual) 16, Monocytes (Manual) 11H, Eosinophils (Manual) 6H, Atypical Lymphocytes 2, Anisocytosis 1+, Platelet Estimate DECREASED, D-Dimer, Quantitative > 4000H, Anion Gap 6L, Glomerular Filtration Rate 43.4, Calcium Level 7.9L, Magnesium Level 2.0, Total Bilirubin 0.4, Aspartate Amino Transf (AST/SGOT) 45H, Alanine Aminotransferase (ALT/SGPT) 78, Alkaline Phosphatase 259H, Total Protein 5.3L, Albumin 2.4L, Albumin/Globulin Ratio 0.8 12/09/20 08:40: Coronavirus (COVID-19)(PCR) NEGATIVE 12/09/20 11:50: Bedside Glucose (Misc Panel) 92 CBC/BMP Laboratory Tests 12/09/20 05:36 FSBS Laboratory Tests Test 12/08/20 16:50 12/08/20 20:26 12/09/20 11:50 Range/Units Bedside Glucose (Misc Panel) 130 133 92 83-110 MG/DL Microbiology Microbiology 12/07/20 Stool Occult Blood (STEFFI) - Final, Complete 12/06/20 Urine Culture - Final, Complete 12/06/20 Blood Culture - Preliminary, Resulted No Growth after 48 hours. All Specime... 12/06/20 Blood Culture - Preliminary, Resulted No Growth after 72 hours. All specime... Discharge Medications Scheduled Amlodipine Besylate (Amlodipine Besylate) 10 Mg Tablet, 10 MG PO QHS, (Reported) Captopril (Captopril) 12.5 Mg Tablet, 1 TAB PO BID for high blood pressure Chlorthalidone (Chlorthalidone) 25 Mg Tablet, 12.5 MG PO 3XW, (Reported) WED, WED, WED Ciprofloxacin HCl (Ciprofloxacin HCl) 250 Mg Tablet, 500 MG PO BID Glipizide (Glipizide ER) 2.5 Mg Tab.er.24, 2.5 MG PO DAILY, (Reported) Spironolactone (Spironolactone) 25 Mg Tablet, 12.5 MG PO 3XW, (Reported) WED, WED, WED Allergies Coded Allergies: amoxicillin (Verified Allergy, Mild, rash, 12/06/20) JUDY SOSA MD Dec 09, 2020 13:57
[2020-12-09] MEDS ORDERED: CAPTOpril 6.25 MG PER 1/2 TABLET PO ONE (14:00)
[2020-12-09] MEDS ORDERED: CHLORTHALIDONE 12.5MG PER 1/2 TABLET PO ONE (14:00)
[2020-12-09 15:14] VITALS: BP 151/65
== END 2020-12-09 15:44 | disposition home or self-care (01) ==
LOC: M ED 11:37 → M ED INP 11:38 → M MSPAV 18:04
PROVIDERS: ADMIT Family Medicine; ATTEND Family Medicine
DX: R78.81 Bacteremia (principal); B96.20 Unspecified Escherichia coli [E. coli] as the cause of diseases classified elsewhere; R74.01 Elevation of levels of liver transaminase levels; D64.9 Anemia, unspecified; N18.30 Chronic kidney disease, stage 3 unspecified; I12.9 Hypertensive chronic kidney disease with stage 1 through stage 4 chronic kidney disease, or unspecified chronic kidney disease; E11.29 Type 2 diabetes mellitus with other diabetic kidney complication; D69.6 Thrombocytopenia, unspecified; E11.22 Type 2 diabetes mellitus with diabetic chronic kidney disease; K76.9 Liver disease, unspecified; Z85.47 Personal history of malignant neoplasm of testis; R79.1 Abnormal coagulation profile; R00.1 Bradycardia, unspecified; N28.1 Cyst of kidney, acquired; R10.9 Unspecified abdominal pain; R19.7 Diarrhea, unspecified; Z90.49 Acquired absence of other specified parts of digestive tract; Z79.899 Other long term (current) drug therapy; Z79.2 Long term (current) use of antibiotics; Z88.0 Allergy status to penicillin
CPT/HCPCS: 36415; 71045; 76705; 80048; 80053; 80076; 81001; 82150; 82270; 82550; 82553; 82607; 82728; 82746; 83540; 83605; 83735; 84484; 85025; 85049; 85055; 85379; 85384; 85610; 85730; 86140; 86850; 86900; 86901; 87040; 87086; 87631; 93005; 93041; 93970; 94760; 96361; 96365; 96366; 96367; 96368; 99285; J0743; J1756; J2185; U0002

== ENCOUNTER → 2021-01-31 | Outpatient (CLI) | payer SELFPAY ==
[~2021-01-31] MED LIST changes: +AMLO1TAB25 PO; +CAPT1TAB17 PO; +CAPT62TA PO; +CHLO125TA PO; +CIPR250T3 PO; +GLIP2.5T6 PO; +GLIP5TAB8; -PROHANCE 279.3MG/ML 5ML VIAL (A9576) As Ordered ONE; +SPIR-10 PO; +TAMS1CAP17
== END ==
LOC: M LABSMTC 09:33
PROVIDERS: ATTEND Pediatrics
DX: Z11.52 Encounter for screening for COVID-19 (principal)

== ENCOUNTER → 2021-03-04 | Outpatient (CLI) | payer OTHER ==
--- NOTE | 2021-03-05 06:29 | REP ---
INDICATION: OTH SYMPTOMS/SIGN INVOLVING CIRRCULATORY SYSTEM COMPARISON: None. TECHNIQUE: Riggs scale and color Doppler evaluation using linear high frequency transducer Findings: FINDINGS: Two-dimensional riggs scale and color images demonstrate normal arterial lumen with laminar flow and no appreciable narrowing. Color Doppler interrogation demonstrates normal arterial wave patterns and velocities with no significant spectral broadening. Normal flow direction is appreciated in the bilateral vertebral arteries. ICA peak systolic velocity: Right 95.5 cm/s; Left 93.3 cm/s ICA diastolic velocity: Right 24.1 cm/s; Left 23.0 cm/s ECA peak systolic velocity: Right 93.4 cm/s; Left 80.7 cm/s CCA peak systolic velocity: Right 95.7 cm/s; Left 1 per 5.0 cm/s ICA/CCA ratio: Right 0.99 cm/s; Left 0.88 cm/s IMPRESSION: No hemodynamically significant areas of narrowing or stenosis appreciated. Based on set standards narrowing falls within the less than 50% range. <Electronically signed by Shaquille Collier > 03/05/21 [id number]
== END ==
LOC: M RAD 11:16
PROVIDERS: ATTEND Physician Assistant
DX: R09.89 Other specified symptoms and signs involving the circulatory and respiratory systems (principal)

== ENCOUNTER → 2021-09-01 | Outpatient (REF) | payer OTHER ==
[2021-09-01 18:49] LABS: PERCENT SATURATION 13.9 % (19.7-50.0)
== END ==
LOC: M LAB REF 16:56
PROVIDERS: ATTEND Internal Medicine Nephrology
DX: D50.9 Iron deficiency anemia, unspecified (principal)

== ENCOUNTER → 2021-10-13 | Outpatient (CLI) | payer OTHER | LOC: M LABSMTC 12:28 | DX: Z20.822 Contact with and (suspected) exposure to COVID-19 (principal) ==

== ENCOUNTER 2022-01-26 16:20 | Inpatient (IN) | payer OTHER ==
[~2022-01-26] VITALS: Ht 167.6 cm; Wt 61.3 kg
[2022-01-26 17:40] LABS: VENOUS BASE EXCESS -13.6 (-2.0-2.0); VENOUS HCO3 12.2 MEQ/L (23.0-27.0); VENOUS O2 SATURATION 88.3 % (60.0-80.0); VENOUS PARTIAL PRESSURE CO2 28.3 mmHg (38.0-50.0); VENOUS PARTIAL PRESSURE O2 57.1 mmHg (30.0-50.0); VENOUS PH 7.251 UNITS (7.330-7.430); VENOUS STANDARD HCO3 13.8 MEQ/L
[2022-01-26 17:43] LABS: BASO % 0.1 % (0.0-1.0); EOS # 0.1 10^3/uL (0.0-0.5); EOS % 0.7 % (0.0-3.0); HEMATOCRIT 34.8 % (42.0-52.0); HEMOGLOBIN 11.4 g/dl (13.5-17.5); LYMPH # 0.7 10^3/uL (1.5-5.0); LYMPH % 7.5 % (24.0-44.0); MEAN CORPUSCULAR HEMOGLOBIN 30.2 pg (27.0-33.0); MEAN CORPUSCULAR HGB CONC 32.8 g/dl (32.0-36.5); MEAN CORPUSCULAR VOLUME 92.3 fl (80.0-96.0); MONO % 10.6 % (2.0-8.0); NEUTROPHILS # 7.9 10^3/uL (1.5-8.5); NEUTROPHILS % 80.7 % (36.0-66.0); PLATELET COUNT, AUTOMATED 122 10^3/uL (150-450); RED BLOOD COUNT 3.77 10^6/uL (4.30-6.10); WHITE BLOOD COUNT 9.8 10^3/uL (4.0-10.0)
[2022-01-26 18:16] LABS: ALBUMIN 3.4 GM/DL (3.2-5.2); BILIRUBIN,DIRECT 0.2 MG/DL (0.0-0.2); BILIRUBIN,TOTAL 0.5 MG/DL (0.2-1.0); CALCIUM LEVEL 8.7 MG/DL (8.8-10.2); CREATININE FOR GFR 3.41 MG/DL (0.70-1.30); FREE T4 0.96 NG/DL (0.76-1.46); GLOMERULAR FILTRATION RATE 18.7 (>42); MAGNESIUM LEVEL 2.2 MG/DL (1.8-2.4); POTASSIUM SERUM 4.4 MEQ/L (3.5-5.1); THYROID STIMULATING HORMONE 1.46 uIU/ML (0.358-3.740); TOTAL PROTEIN 6.8 GM/DL (6.4-8.2)
[2022-01-26 18:19] LABS: RSV AMPLIFICATION NEGATIVE (NEGATIVE)
[2022-01-26] MEDS ORDERED: NS 1,000 ML IV SCH (18:25)
[2022-01-26] MEDS ORDERED: NS 500 ML IV ONE (18:25)
[2022-01-26] MEDS ORDERED: PRED20TA PO (19:08)
[2022-01-26] MEDS ORDERED: DOXY-443 PO (19:08)
[2022-01-26] MEDS ORDERED: CREO3600 PO (19:08)
[2022-01-26] MEDS ORDERED: CALC1CAP31 PO (19:08)
[2022-01-26] MEDS ORDERED: FURO20TA2 PO (19:08)
[2022-01-26] MEDS ORDERED: HYDR-3910 PO (19:08)
[2022-01-26] MEDS ORDERED: ACETAMINOPHEN TAB 650MG DOSE (2X325MG) PO PRN (20:30)
[2022-01-26] MEDS ORDERED: HOME MED LIST COMPLETE! XX SCH (20:35)
[2022-01-26] MEDS ORDERED: GLUCAGON INJ 1MG VIAL SC PRN (21:00)
[2022-01-26] MEDS: HumaLOG INSULIN (NovoLOG) PER UNIT SC SCH (21:00)
[2022-01-26] MEDS ORDERED: GLUCOSE 4GM CHEW TABLET PO PRN (21:00)
[2022-01-26] MEDS ORDERED: DEXTROSE 50% 50 ML SYRINGE IV PRN (21:00)
[2022-01-26] MEDS ORDERED: SODIUM BICARBONATE 100 MEQ in D5W 1,000 ML IV SCH (21:15)
[2022-01-26 22:23] LABS: INR 1.13; PROTHROMBIN TIME 14.9 SECONDS (12.7-14.5)
[2022-01-26 22:24] LABS: PARTIAL THROMBOPLASTIN TIME 26.4 SECONDS (25.9-37.0)
[2022-01-26 22:49] LABS: ACETONE/KETONE 2.71 MG/DL (<2.81)
[2022-01-26 22:55] VITALS: BP 184/81
[2022-01-26 23:05] VITALS: BP 190/78
[2022-01-26] MEDS ORDERED: **hydrALAZINE HCL** 25 MG TAB PO ONE (23:15)
[2022-01-26 23:51] VITALS: BP 169/77
[2022-01-27 03:49] LABS: APPEARANCE, URINE CLEAR (CLEAR); BACTERIA, URINE AUTO NEGATIVE (NEGATIVE); BILIRUBIN, URINE AUTO NEGATIVE (NEGATIVE); BLOOD, URINE BLOOD NEGATIVE (NEGATIVE); COLOR, URINE STRAW (YELLOW); GLUCOSE, URINE (UA) AUTO 1+ mg/dL (NEGATIVE); KETONE, URINE AUTO NEGATIVE (NEGATIVE); LEUKOCYTE ESTERASE, URINE AUTO NEGATIVE (NEGATIVE); NITRITE, URINE AUTO NEGATIVE (NEGATIVE); PROTEIN, URINE AUTO NEGATIVE (NEGATIVE); RBC, URINE AUTO 0 /HPF (0-3); SPECIFIC GRAVITY URINE AUTO 1.009 (1.002-1.035); SQUAMOUS EPITHELIAL CELL UR AU 0 /HPF (0-6); UROBILINOGEN, URINE AUTO 0.2 mg/dL (0.0-2.0); WBC, URINE AUTO 1 /HPF (0-3)
[2022-01-27 04:07] VITALS: BP 148/72
[2022-01-27 04:12] LABS: CREATININE,RANDOM URINE 24.1 MG/DL; SODIUM,RANDOM URINE 82 MEQ/L; UREA NITROGEN RANDOM URINE 436 MG/DL
[2022-01-27 05:14] LABS: BASO % 0.1 % (0.0-1.0); EOS # 0.1 10^3/uL (0.0-0.5); HEMATOCRIT 31.8 % (42.0-52.0); HEMOGLOBIN 10.5 g/dl (13.5-17.5); LYMPH # 0.8 10^3/uL (1.5-5.0); LYMPH % 9.5 % (24.0-44.0); MEAN CORPUSCULAR HEMOGLOBIN 30.1 pg (27.0-33.0); MEAN CORPUSCULAR VOLUME 91.1 fl (80.0-96.0); MONO # 0.8 10^3/uL (0.0-0.8); MONO % 9.9 % (2.0-8.0); NEUTROPHILS # 6.3 10^3/uL (1.5-8.5); NEUTROPHILS % 79.1 % (36.0-66.0); PLATELET COUNT, AUTOMATED 109 10^3/uL (150-450); RED BLOOD COUNT 3.49 10^6/uL (4.30-6.10)
[2022-01-27 05:48] LABS: ALBUMIN 2.8 GM/DL (3.2-5.2); BILIRUBIN,DIRECT 0.2 MG/DL (0.0-0.2); BILIRUBIN,TOTAL 0.4 MG/DL (0.2-1.0); CREATININE FOR GFR 3.24 MG/DL (0.70-1.30); GLOMERULAR FILTRATION RATE 19.9 (>42); PHOSPHORUS LEVEL 5.4 MG/DL (2.5-4.9); POTASSIUM SERUM 3.7 MEQ/L (3.5-5.1); TOTAL PROTEIN 5.7 GM/DL (6.4-8.2)
[2022-01-27 08:00] VITALS: BP 152/82
[2022-01-27] MEDS: CREON-12 CAPSULE PO SCH ×3 (08:00→18:00)
[2022-01-27] MEDS: SODIUM BICARBONATE 150 MEQ in STERILE WATER LITER BAG 1,000 ML IV SCH ×2 (08:57→20:56)
[2022-01-27] MEDS: HumaLOG INSULIN (NovoLOG) PER UNIT SC SCH ×4 (10:06→20:57)
[2022-01-27] MEDS: CALCITRIOL 0.25 MCG CAP (S0169) PO SCH (10:06)
[2022-01-27] MEDS: HEPARIN SOD (PORCINE) 5000UNITS/ML 1ML VIAL/SYRINGE SC SCH ×2 (10:15→20:57)
[2022-01-27 11:35] VITALS: BP 153/72
[2022-01-27 15:36] VITALS: BP 169/78
[2022-01-27 20:40] VITALS: BP 134/62
[2022-01-28 00:13] VITALS: BP 136/75
[2022-01-28 04:25] VITALS: BP 159/73
[2022-01-28 06:03] LABS: HEMATOCRIT 33.1 % (42.0-52.0); HEMOGLOBIN 11.2 g/dl (13.5-17.5); MEAN CORPUSCULAR HEMOGLOBIN 29.7 pg (27.0-33.0); MEAN CORPUSCULAR HGB CONC 33.8 g/dl (32.0-36.5); MEAN CORPUSCULAR VOLUME 87.8 fl (80.0-96.0); PLATELET COUNT, AUTOMATED 133 10^3/uL (150-450); RED BLOOD COUNT 3.77 10^6/uL (4.30-6.10); WHITE BLOOD COUNT 9.7 10^3/uL (4.0-10.0)
[2022-01-28 06:29] LABS: CALCIUM LEVEL 7.9 MG/DL (8.8-10.2); CREATININE FOR GFR 2.86 MG/DL (0.70-1.30); GLOMERULAR FILTRATION RATE 22.9 (>42); POTASSIUM SERUM 3.1 MEQ/L (3.5-5.1)
[2022-01-28 08:00] VITALS: BP 147/70
[2022-01-28] MEDS: HEPARIN SOD (PORCINE) 5000UNITS/ML 1ML VIAL/SYRINGE SC SCH (09:02)
[2022-01-28] MEDS: HumaLOG INSULIN (NovoLOG) PER UNIT SC SCH (09:02)
[2022-01-28] MEDS: SODIUM BICARBONATE 150 MEQ in STERILE WATER LITER BAG 1,000 ML IV SCH (09:02)
[2022-01-28 09:03] VITALS: BP 147/70
[2022-01-28] MEDS: CREON-12 CAPSULE PO SCH (09:03)
[2022-01-28] MEDS: CALCITRIOL 0.25 MCG CAP (S0169) PO SCH (09:03)
[2022-01-28] MEDS ORDERED: POTASSIUM CHLORIDE 10MEQ SR TABLET PO ONE (10:35)
[2022-01-28] MEDS ORDERED: SODI325T9 PO (10:41)
[2022-01-28] MEDS ORDERED: SODIUM BICARBONATE 325 MG TAB PO SCH (21:00)
== END 2022-01-28 12:16 | disposition home or self-care (01) | DRG 683 ==
LOC: M ED 16:20 → M ED INP 20:38 → M PCU 22:50
PROVIDERS: ADMIT Family Medicine; ATTEND Family Medicine
DX: N17.9 Acute kidney failure, unspecified (principal); E87.2 Acidosis; R17 Unspecified jaundice; N18.30 Chronic kidney disease, stage 3 unspecified; I12.9 Hypertensive chronic kidney disease with stage 1 through stage 4 chronic kidney disease, or unspecified chronic kidney disease; E11.22 Type 2 diabetes mellitus with diabetic chronic kidney disease; Z20.822 Contact with and (suspected) exposure to COVID-19; Z79.899 Other long term (current) drug therapy; Z88.1 Allergy status to other antibiotic agents; R74.8 Abnormal levels of other serum enzymes; Z85.07 Personal history of malignant neoplasm of pancreas; Z92.21 Personal history of antineoplastic chemotherapy; D63.1 Anemia in chronic kidney disease; Z95.828 Presence of other vascular implants and grafts; E86.0 Dehydration; R63.4 Abnormal weight loss

== ENCOUNTER 2022-03-06 15:55 | Emergency (ER) | payer MEDICARE, OTHER ==
[~2022-03-06] VITALS: Ht 167.6 cm; Wt 57.7 kg
[~2022-03-06 15:55] MED LIST changes: +CALC1CAP31 PO; +CREO3600 PO; +DOXY-443 PO; +FURO20TA2 PO; +HYDR-3910 PO; +PRED20TA PO; +SODI325T9 PO
[2022-03-06 17:15] VITALS: BP 184/78
[2022-03-06 18:01] LABS: BASO % 0.3 % (0.0-1.0); EOS # 0.1 10^3/uL (0.0-0.5); EOS % 1.9 % (0.0-3.0); HEMATOCRIT 23.8 % (42.0-52.0); HEMOGLOBIN 7.5 g/dl (13.5-17.5); LYMPH # 0.5 10^3/uL (1.5-5.0); LYMPH % 7.3 % (24.0-44.0); MEAN CORPUSCULAR HEMOGLOBIN 30.4 pg (27.0-33.0); MEAN CORPUSCULAR HGB CONC 31.5 g/dl (32.0-36.5); MEAN CORPUSCULAR VOLUME 96.4 fl (80.0-96.0); MONO # 0.4 10^3/uL (0.0-0.8); MONO % 6.1 % (2.0-8.0); NEUTROPHILS # 5.4 10^3/uL (1.5-8.5); NEUTROPHILS % 83.5 % (36.0-66.0); PLATELET COUNT, AUTOMATED 146 10^3/uL (150-450); RED BLOOD COUNT 2.47 10^6/uL (4.30-6.10); WHITE BLOOD COUNT 6.4 10^3/uL (4.0-10.0)
[2022-03-06] MEDS ORDERED: SODIUM BICARBONATE 150 MEQ in STERILE WATER LITER BAG 1,000 ML IV SCH (18:05)
[2022-03-06 18:37] LABS: ALBUMIN 2.5 GM/DL (3.2-5.2); BILIRUBIN,DIRECT 4.6 MG/DL (0.0-0.2); CALCIUM LEVEL 8.4 MG/DL (8.8-10.2); CREATININE FOR GFR 4.16 MG/DL (0.70-1.30); FREE T4 0.97 NG/DL (0.76-1.46); GLOMERULAR FILTRATION RATE 14.9 (>42); POTASSIUM SERUM 4.8 MEQ/L (3.5-5.1); THYROID STIMULATING HORMONE 1.4 uIU/ML (0.358-3.740); TOTAL PROTEIN 5.4 GM/DL (6.4-8.2)
[2022-03-06] MEDS ORDERED: VITA100093 PO (19:01)
[2022-03-06] MEDS ORDERED: PANCCAP2 PO (19:01)
[2022-03-06] MEDS ORDERED: GLIP-162 PO (19:01)
[2022-03-06] MEDS ORDERED: ALLO100T PO (19:01)
[2022-03-06] MEDS ORDERED: DOXY-443 PO (19:02)
[2022-03-06] MEDS ORDERED: IRON65TA2 PO (19:02)
[2022-03-06] MEDS ORDERED: PRED10TA2 PO (19:02)
[2022-03-06] MEDS ORDERED: HOME MED LIST COMPLETE! XX SCH (19:05)
[2022-03-06 20:18] LABS: RSV AMPLIFICATION NEGATIVE (NEGATIVE)
== END 2022-03-06 23:15 | disposition left against medical advice (07) ==
LOC: M ED 15:55
DX: N17.9 Acute kidney failure, unspecified (principal); Z53.9 Procedure and treatment not carried out, unspecified reason; R00.1 Bradycardia, unspecified; I44.4 Left anterior fascicular block; N13.30 Unspecified hydronephrosis; I12.9 Hypertensive chronic kidney disease with stage 1 through stage 4 chronic kidney disease, or unspecified chronic kidney disease; I10 Essential (primary) hypertension; D64.9 Anemia, unspecified; E11.22 Type 2 diabetes mellitus with diabetic chronic kidney disease; M10.9 Gout, unspecified; Z88.1 Allergy status to other antibiotic agents; Z79.899 Other long term (current) drug therapy

== ENCOUNTER 2022-03-12 19:03 | Inpatient (IN) | payer MEDICARE, OTHER ==
[~2022-03-12] VITALS: Ht 172.7 cm; Wt 70.6 kg
[~2022-03-12 19:03] MED LIST changes: +ALLO100T PO; +GLIP-162 PO; +IRON65TA2 PO; +PANCCAP2 PO; +PRED10TA2 PO; +VITA100093 PO
[2022-03-12] MEDS ORDERED: NS 1,000 ML IV SCH ×2 (20:45→22:40)
[2022-03-12] MEDS ORDERED: INSULIN LISPRO (NovoLOG) PER UNIT SC SCH (21:00)
[2022-03-12 21:05] LABS: VENOUS BASE EXCESS -16.6 (-2.0-2.0); VENOUS HCO3 10.1 MEQ/L (23.0-27.0); VENOUS O2 SATURATION 73.5 % (60.0-80.0); VENOUS PARTIAL PRESSURE CO2 26.9 mmHg (38.0-50.0); VENOUS PARTIAL PRESSURE O2 47.6 mmHg (30.0-50.0); VENOUS PH 7.191 UNITS (7.330-7.430); VENOUS STANDARD HCO3 11.2 MEQ/L; VENOUS TOTAL CO2 10.9 MEQ/L (24.0-28.0)
[2022-03-12 21:11] LABS: BASO % 0.3 % (0.0-1.0); EOS % 0.3 % (0.0-3.0); HEMATOCRIT 21.6 % (42.0-52.0); LYMPH # 0.5 10^3/uL (1.5-5.0); LYMPH % 6.2 % (24.0-44.0); MEAN CORPUSCULAR HEMOGLOBIN 30.4 pg (27.0-33.0); MEAN CORPUSCULAR HGB CONC 31.5 g/dl (32.0-36.5); MEAN CORPUSCULAR VOLUME 96.4 fl (80.0-96.0); MONO # 0.4 10^3/uL (0.0-0.8); MONO % 5.6 % (2.0-8.0); NEUTROPHILS # 6.7 10^3/uL (1.5-8.5); NEUTROPHILS % 86.2 % (36.0-66.0); PLATELET COUNT, AUTOMATED 185 10^3/uL (150-450); RED BLOOD COUNT 2.24 10^6/uL (4.30-6.10); WHITE BLOOD COUNT 7.7 10^3/uL (4.0-10.0)
[2022-03-12 21:14] LABS: HEMOGLOBIN 6.8 g/dl (13.5-17.5)
[2022-03-12 21:23] LABS: INR 1.37; PROTHROMBIN TIME 17.3 SECONDS (12.7-14.5)
[2022-03-12 21:24] LABS: PARTIAL THROMBOPLASTIN TIME 31.6 SECONDS (25.9-37.0)
[2022-03-12 21:31] LABS: ALBUMIN 2.1 GM/DL (3.2-5.2); BILIRUBIN,DIRECT 2.6 MG/DL (0.0-0.2); CALCIUM LEVEL 7.5 MG/DL (8.8-10.2); CK-MB VALUE MASS < 1.0 NG/ML (<3.6); CPK CREATINE PHOSPHOKINASE 11 U/L (39-308); CREATININE FOR GFR 5.59 MG/DL (0.70-1.30); GLOMERULAR FILTRATION RATE 10.6 (>42); MB/CK RELATIVE INDEX 9.09 (< OR =4); POTASSIUM SERUM 5.5 MEQ/L (3.5-5.1)
[2022-03-12 21:46] LABS: RSV AMPLIFICATION NEGATIVE (NEGATIVE)
[2022-03-12 22:12] LABS: CK-MB VALUE MASS < 1.0 NG/ML (<3.6); CPK CREATINE PHOSPHOKINASE 12 U/L (39-308); MB/CK RELATIVE INDEX 8.33 (< OR =4)
[2022-03-12] MEDS ORDERED: ACETAMINOPHEN TAB 650MG DOSE (2X325MG) PO PRN (22:40)
[2022-03-12] MEDS ORDERED: ONDANSETRON 4MG 2ML VIAL IV PRN (22:40)
[2022-03-12] MEDS ORDERED: CALCIUM GLUCONATE 1,000 MG in D5W MINI-BAG PLUS 100 ML IV ONE (22:40)
[2022-03-12] MEDS ORDERED: DEXTROSE 50% 50 ML SYRINGE IV PRN (22:40)
[2022-03-12] MEDS ORDERED: GLUCAGON INJ 1MG VIAL SC PRN (22:40)
[2022-03-12] MEDS ORDERED: GLUCOSE 4GM CHEW TABLET PO PRN (22:40)
[2022-03-12] MEDS ORDERED: HYDROMORPHONE HCL 0.5 MG/ 0.5 ML SYRINGE (J1170 PER 1) IV PRN ×2 (22:40)
[2022-03-12] MEDS ORDERED: METOCLOPRAMIDE INJ 10MG/2ML VIAL (J2765 PER 1) IV PRN (22:55)
[2022-03-12 22:58] VITALS: BP 150/73
[2022-03-12 23:15] VITALS: BP 146/77
[2022-03-12] MEDS: SUCRALFATE SUSP 1GM/10ML UD PO SCH (23:27)
[2022-03-12] MEDS: PANTOPRAZOLE 40MG VIAL IV SCH (23:27)
[2022-03-13] VITALS (11 sets, daily range): BP systolic 130–179; BP diastolic 66–97
[2022-03-13] MEDS: SODIUM BICARBONATE 150 MEQ in STERILE WATER LITER BAG 1,000 ML IV SCH ×2 (01:17→12:30)
[2022-03-13] MEDS ORDERED: diphenhydrAMINE 25MG CAP PO ONE (05:00)
[2022-03-13] MEDS ORDERED: amLODIPine 5 MG TAB PO ONE (05:00)
[2022-03-13 05:01] LABS: APPEARANCE, URINE HAZY (CLEAR); BACTERIA, URINE AUTO NEGATIVE (NEGATIVE); BILIRUBIN, URINE AUTO NEGATIVE (NEGATIVE); BLOOD, URINE BLOOD NEGATIVE (NEGATIVE); COLOR, URINE YELLOW (YELLOW); GLUCOSE, URINE (UA) AUTO 3+ mg/dL (NEGATIVE); KETONE, URINE AUTO NEGATIVE (NEGATIVE); LEUKOCYTE ESTERASE, URINE AUTO NEGATIVE (NEGATIVE); NITRITE, URINE AUTO NEGATIVE (NEGATIVE); PROTEIN, URINE AUTO NEGATIVE (NEGATIVE); RBC, URINE AUTO 1 /HPF (0-3); SPECIFIC GRAVITY URINE AUTO 1.009 (1.002-1.035); SQUAMOUS EPITHELIAL CELL UR AU 0 /HPF (0-6); UROBILINOGEN, URINE AUTO 0.2 mg/dL (0.0-2.0); WBC, URINE AUTO 8 /HPF (0-3)
[2022-03-13] MEDS ORDERED: TAMS1CAP17 PO (05:03)
[2022-03-13] MEDS ORDERED: AMLO1TAB25 PO (05:03)
[2022-03-13] MEDS ORDERED: JARD1TAB PO (05:03)
[2022-03-13] MEDS ORDERED: HOME MED LIST COMPLETE! XX SCH (05:05)
[2022-03-13 05:31] LABS: CREATININE,RANDOM URINE 59.7 MG/DL; TOTAL PROTEIN,RANDOM URINE 39.2 MG/DL (0.0-12.0)
[2022-03-13 07:33] LABS: MEAN CORPUSCULAR HEMOGLOBIN 28.8 pg (27.0-33.0); MEAN CORPUSCULAR HGB CONC 32.5 g/dl (32.0-36.5); MEAN CORPUSCULAR VOLUME 88.6 fl (80.0-96.0); PLATELET COUNT, AUTOMATED 140 10^3/uL (150-450); RED BLOOD COUNT 3.61 10^6/uL (4.30-6.10); WHITE BLOOD COUNT 8.1 10^3/uL (4.0-10.0)
[2022-03-13 07:40] LABS: HEMOGLOBIN 10.4 g/dl (13.5-17.5)
[2022-03-13 08:04] LABS: BILIRUBIN,TOTAL 5.2 MG/DL (0.2-1.0); CALCIUM LEVEL 6.9 MG/DL (8.8-10.2); CREATININE FOR GFR 5.43 MG/DL (0.70-1.30); GLOMERULAR FILTRATION RATE 10.9 (>42); MAGNESIUM LEVEL 2.1 MG/DL (1.8-2.4); PERCENT SATURATION 117.1 % (19.7-50.0); POTASSIUM SERUM 5.3 MEQ/L (3.5-5.1); TOTAL PROTEIN 4.6 GM/DL (6.4-8.2)
[2022-03-13] MEDS: SUCRALFATE SUSP 1GM/10ML UD PO SCH ×4 (08:53→21:00)
[2022-03-13] MEDS: INSULIN LISPRO (NovoLOG) PER UNIT SC SCH ×4 (08:53→23:44)
[2022-03-13] MEDS: CREON-24 CAPSULE PO SCH ×3 (10:05→19:30)
[2022-03-13] MEDS: PANTOPRAZOLE 40MG VIAL IV SCH ×2 (10:05→21:00)
[2022-03-13] MEDS: TAMSULOSIN 0.4 MG CAP PO SCH (10:06)
[2022-03-13] MEDS: FERROUS SULFATE 325MG TAB PO SCH (10:07)
[2022-03-13] MEDS ORDERED: HumuLIN R (REGULAR) INSULIN (NovoLIN R) **100U/ML** PER UNIT IV STA (10:24)
[2022-03-13] MEDS ORDERED: DEXTROSE 50% 50 ML SYRINGE IV ONE (10:25)
[2022-03-13 10:28] LABS: FOLATE 9.4 NG/ML
[2022-03-13] MEDS ORDERED: hydrALAZINE 20MG/ML 1ML VIAL (J0360 PER 20MG) IV PRN (10:30)
[2022-03-13] MEDS ORDERED: **hydrALAZINE HCL** 25 MG TAB PO ONE (11:35)
[2022-03-13] MEDS ORDERED: GLUCAGON INJ 1MG VIAL SC PRN (15:20)
[2022-03-13] MEDS ORDERED: DEXTROSE 50% 50 ML SYRINGE IV PRN (15:20)
[2022-03-13] MEDS ORDERED: GLUCOSE 4GM CHEW TABLET PO PRN (15:20)
[2022-03-13] MEDS ORDERED: GASTROGRAFIN SOLUTION 30ML (Q9963) As Ordered ONE (15:35)
[2022-03-13 15:59] LABS: CALCIUM LEVEL 7.5 MG/DL (8.8-10.2); CREATININE FOR GFR 5.48 MG/DL (0.70-1.30); GLOMERULAR FILTRATION RATE 10.8 (>42); POTASSIUM SERUM 4.1 MEQ/L (3.5-5.1)
[2022-03-13] MEDS ORDERED: BISACODYL 5 MG TAB PO ONE (16:00)
[2022-03-13] MEDS ORDERED: GOLYTELY SOLN 4000 ML BTL PO ONE (18:00)
[2022-03-13 19:01] LABS: HEMOGLOBIN A1c 6.6 %
[2022-03-13] MEDS: **hydrALAZINE HCL** 25 MG TAB PO SCH (21:00)
[2022-03-13] MEDS: diphenhydrAMINE 25MG CAP PO PRN (22:43)
[2022-03-14] VITALS (11 sets, daily range): BP systolic 129–151; BP diastolic 60–69
[2022-03-14] MEDS: SODIUM BICARBONATE 150 MEQ in STERILE WATER LITER BAG 1,000 ML IV SCH ×2 (01:00→14:50)
[2022-03-14] MEDS ORDERED: MAGNESIUM CITRATE 300 ML BTL PO ONE (05:00)
[2022-03-14] MEDS: INSULIN LISPRO (NovoLOG) PER UNIT SC SCH ×4 (05:53→23:36)
[2022-03-14 06:45] LABS: HEMATOCRIT 27.3 % (42.0-52.0); HEMOGLOBIN 9.1 g/dl (13.5-17.5); MEAN CORPUSCULAR HEMOGLOBIN 28.7 pg (27.0-33.0); MEAN CORPUSCULAR HGB CONC 33.3 g/dl (32.0-36.5); MEAN CORPUSCULAR VOLUME 86.1 fl (80.0-96.0); PLATELET COUNT, AUTOMATED 109 10^3/uL (150-450); RED BLOOD COUNT 3.17 10^6/uL (4.30-6.10)
[2022-03-14 07:18] LABS: ALBUMIN 1.8 GM/DL (3.2-5.2); BILIRUBIN,TOTAL 2.9 MG/DL (0.2-1.0); CALCIUM LEVEL 7.4 MG/DL (8.8-10.2); CREATININE FOR GFR 5.08 MG/DL (0.70-1.30); GLOMERULAR FILTRATION RATE 11.8 (>42); MAGNESIUM LEVEL 1.8 MG/DL (1.8-2.4); PHOSPHORUS LEVEL 5.3 MG/DL (2.5-4.9); POTASSIUM SERUM 4.1 MEQ/L (3.5-5.1); TOTAL PROTEIN 4.7 GM/DL (6.4-8.2)
[2022-03-14] MEDS: SUCRALFATE SUSP 1GM/10ML UD PO SCH ×4 (07:30→20:01)
[2022-03-14] MEDS: CREON-24 CAPSULE PO SCH ×3 (07:45→17:52)
[2022-03-14] MEDS ORDERED: propofoL 200 MG/20 ML VIAL As Ordered ONE (07:49)
[2022-03-14] MEDS ORDERED: LIDOCAINE 2% 100MG/5ML SDV (FOR ANES.) As Ordered ONE (07:53)
[2022-03-14] MEDS ORDERED: SIMETHICONE 40MG/0.6ML DROPS 30ML As Ordered ONE (07:59)
[2022-03-14] MEDS ORDERED: ONDANSETRON 4MG 2ML VIAL IV PRN (08:45)
[2022-03-14] MEDS ORDERED: LR 1,000 ML IV SCH (08:45)
[2022-03-14] MEDS: **hydrALAZINE HCL** 25 MG TAB PO SCH ×2 (10:33→20:01)
[2022-03-14] MEDS: FERROUS SULFATE 325MG TAB PO SCH (10:33)
[2022-03-14] MEDS: TAMSULOSIN 0.4 MG CAP PO SCH (10:34)
[2022-03-14] MEDS: PANTOPRAZOLE 40MG VIAL IV SCH ×2 (10:34→20:02)
[2022-03-14] MEDS: SODIUM CHLORIDE 0.9% INJ 10 ML SYR IV SCH (12:53)
[2022-03-14] MEDS: diphenhydrAMINE 25MG CAP PO PRN (20:00)
[2022-03-15] VITALS (10 sets, daily range): BP systolic 114–133; BP diastolic 57–66
[2022-03-15] MEDS: SODIUM BICARBONATE 150 MEQ in STERILE WATER LITER BAG 1,000 ML IV SCH (03:05)
[2022-03-15 06:36] LABS: HEMATOCRIT 25.1 % (42.0-52.0); HEMOGLOBIN 8.4 g/dl (13.5-17.5); MEAN CORPUSCULAR HEMOGLOBIN 29.6 pg (27.0-33.0); MEAN CORPUSCULAR HGB CONC 33.5 g/dl (32.0-36.5); MEAN CORPUSCULAR VOLUME 88.4 fl (80.0-96.0); RED BLOOD COUNT 2.84 10^6/uL (4.30-6.10); WHITE BLOOD COUNT 4.7 10^3/uL (4.0-10.0)
[2022-03-15 07:04] LABS: ALBUMIN 1.7 GM/DL (3.2-5.2); BILIRUBIN,TOTAL 2.6 MG/DL (0.2-1.0); CALCIUM LEVEL 6.1 MG/DL (8.8-10.2); CREATININE FOR GFR 5.02 MG/DL (0.70-1.30); MAGNESIUM LEVEL 1.7 MG/DL (1.8-2.4); PHOSPHORUS LEVEL 5.3 MG/DL (2.5-4.9); POTASSIUM SERUM 4.3 MEQ/L (3.5-5.1); TOTAL PROTEIN 3.9 GM/DL (6.4-8.2)
[2022-03-15 07:07] LABS: PLATELET COUNT, AUTOMATED 99 10^3/uL (150-450)
[2022-03-15] MEDS: INSULIN LISPRO (NovoLOG) PER UNIT SC SCH ×4 (07:20→20:25)
[2022-03-15] MEDS: SUCRALFATE SUSP 1GM/10ML UD PO SCH (07:38)
[2022-03-15] MEDS: CREON-24 CAPSULE PO SCH ×3 (07:39→18:27)
[2022-03-15] MEDS: SODIUM CHLORIDE 0.9% INJ 10 ML SYR IV SCH (09:00)
[2022-03-15] MEDS ORDERED: CALCIUM GLUCONATE 1,000 MG in D5W MINI-BAG PLUS 100 ML IV ONE (10:00)
[2022-03-15] MEDS: TAMSULOSIN 0.4 MG CAP PO SCH (10:11)
[2022-03-15] MEDS: CYANOCOBALAMIN 500 MCG TAB PO SCH (10:11)
[2022-03-15] MEDS: PANTOPRAZOLE 40MG TAB (PROTONIX) PO SCH ×2 (10:12→20:29)
[2022-03-15] MEDS: SODIUM CHLORIDE 0.9% INJ 10 ML SYR IV PRN ×2 (10:59→16:05)
[2022-03-15] MEDS ORDERED: MAG SULF 1GM/100ML (MAG RUN) 1 GM in IV 1 EA IV ONE (11:00)
[2022-03-15] MEDS: SODIUM BICARBONATE 325 MG TAB PO SCH ×2 (11:50→20:29)
[2022-03-15] MEDS: CALCITRIOL 0.25 MCG CAP (S0169) PO SCH (11:51)
[2022-03-15] MEDS ORDERED: NS 1,000 ML IV ONE (12:40)
[2022-03-16] VITALS: BP 144/63
[2022-03-16 04:00] VITALS: BP 121/58
[2022-03-16 05:52] LABS: MEAN CORPUSCULAR HEMOGLOBIN 29.2 pg (27.0-33.0); MEAN CORPUSCULAR HGB CONC 33.3 g/dl (32.0-36.5); MEAN CORPUSCULAR VOLUME 87.7 fl (80.0-96.0); PLATELET COUNT, AUTOMATED 115 10^3/uL (150-450); RED BLOOD COUNT 3.08 10^6/uL (4.30-6.10); WHITE BLOOD COUNT 5.9 10^3/uL (4.0-10.0)
[2022-03-16 06:08] LABS: ALBUMIN 1.8 GM/DL (3.2-5.2); CALCIUM LEVEL 6.7 MG/DL (8.8-10.2); CREATININE FOR GFR 5.18 MG/DL (0.70-1.30); GLOMERULAR FILTRATION RATE 11.6 (>42); MAGNESIUM LEVEL 1.9 MG/DL (1.8-2.4); PHOSPHORUS LEVEL 5.6 MG/DL (2.5-4.9); POTASSIUM SERUM 4.1 MEQ/L (3.5-5.1); TOTAL PROTEIN 4.3 GM/DL (6.4-8.2)
[2022-03-16 07:47] VITALS: BP_SYST 122; BP_SYST 138; BP_SYST 87; BP_DIAS 51; BP_DIAS 57; BP_DIAS 65
[2022-03-16] MEDS ORDERED: NS 1,000 ML IV ONE (07:55)
[2022-03-16 08:00] VITALS: BP 133/61
[2022-03-16] MEDS: SODIUM CHLORIDE 0.9% INJ 10 ML SYR IV SCH (09:00)
[2022-03-16] MEDS: TAMSULOSIN 0.4 MG CAP PO SCH (09:15)
[2022-03-16] MEDS: PANTOPRAZOLE 40MG TAB (PROTONIX) PO SCH ×2 (09:15→20:18)
[2022-03-16] MEDS: SODIUM BICARBONATE 325 MG TAB PO SCH ×2 (09:15→20:18)
[2022-03-16] MEDS: CALCITRIOL 0.25 MCG CAP (S0169) PO SCH (09:15)
[2022-03-16] MEDS: INSULIN LISPRO (NovoLOG) PER UNIT SC SCH ×4 (09:16→20:19)
[2022-03-16] MEDS: CREON-24 CAPSULE PO SCH ×3 (09:16→18:01)
[2022-03-16] MEDS: CYANOCOBALAMIN 500 MCG TAB PO SCH (09:16)
[2022-03-16 09:55] LABS: TOTAL 25(OH) VITAMIN D 26.7 NG/ML (30.0-100.0)
[2022-03-16 16:00] VITALS: BP 129/60
[2022-03-16 19:36] VITALS: BP 140/70
[2022-03-16] MEDS ORDERED: hydrOXYzine 50 MG TAB PO ONE (23:40)
[2022-03-17 03:30] VITALS: BP 129/63
[2022-03-17 05:34] LABS: HEMATOCRIT 24.4 % (42.0-52.0); HEMOGLOBIN 8.1 g/dl (13.5-17.5); MEAN CORPUSCULAR HEMOGLOBIN 29.9 pg (27.0-33.0); MEAN CORPUSCULAR HGB CONC 33.2 g/dl (32.0-36.5); PLATELET COUNT, AUTOMATED 124 10^3/uL (150-450); RED BLOOD COUNT 2.71 10^6/uL (4.30-6.10); WHITE BLOOD COUNT 5.7 10^3/uL (4.0-10.0)
[2022-03-17 05:59] LABS: ALBUMIN 1.7 GM/DL (3.2-5.2); BILIRUBIN,TOTAL 1.8 MG/DL (0.2-1.0); CALCIUM LEVEL 6.2 MG/DL (8.8-10.2); CREATININE FOR GFR 5.08 MG/DL (0.70-1.30); GLOMERULAR FILTRATION RATE 11.8 (>42); MAGNESIUM LEVEL 1.8 MG/DL (1.8-2.4); PHOSPHORUS LEVEL 5.5 MG/DL (2.5-4.9); POTASSIUM SERUM 3.6 MEQ/L (3.5-5.1)
[2022-03-17 08:00] VITALS: BP 144/66
[2022-03-17] MEDS: INSULIN LISPRO (NovoLOG) PER UNIT SC SCH ×4 (08:26→20:14)
[2022-03-17] MEDS: SODIUM BICARBONATE 325 MG TAB PO SCH (08:26)
[2022-03-17] MEDS: CYANOCOBALAMIN 500 MCG TAB PO SCH (08:27)
[2022-03-17] MEDS: CREON-24 CAPSULE PO SCH ×3 (08:27→17:14)
[2022-03-17] MEDS: PANTOPRAZOLE 40MG TAB (PROTONIX) PO SCH ×2 (08:27→20:18)
[2022-03-17] MEDS: CALCITRIOL 0.25 MCG CAP (S0169) PO SCH (08:27)
[2022-03-17] MEDS: SODIUM CHLORIDE 0.9% INJ 10 ML SYR IV SCH (08:28)
[2022-03-17 08:38] VITALS: BP_SYST 148; BP_SYST 167; BP_SYST 169; BP_DIAS 57; BP_DIAS 72; BP_DIAS 77
[2022-03-17] MEDS ORDERED: TAMSULOSIN 0.4 MG CAP PO SCH (09:00)
[2022-03-17] MEDS ORDERED: DARBEPOETIN 200MCG/0.4ML *DIALYSIS* SYRINGE (J0882 PER 1MCG) IV SCH (10:15)
[2022-03-17 12:38] LABS: HEMATOCRIT 29.8 % (42.0-52.0); HEMOGLOBIN 9.9 g/dl (13.5-17.5)
[2022-03-17 15:50] LABS: HEPATITIS B CORE ANTIBODY IGM NEGATIVE (NEGATIVE); HEPATITIS B SURFACE ANTIBODY NEGATIVE (POSITIVE); HEPATITIS B SURFACE ANTIGEN NEGATIVE (NEGATIVE); HEPATITIS C VIRUS ABY INDEX 0.1 INDEX (<0.8)
[2022-03-17 19:52] VITALS: BP 155/72
[2022-03-17] MEDS: amLODIPine 5 MG TAB PO SCH (20:17)
[2022-03-18 04:04] VITALS: BP 122/94
[2022-03-18 05:02] LABS: HEMATOCRIT 27.9 % (42.0-52.0); HEMOGLOBIN 9.5 g/dl (13.5-17.5); MEAN CORPUSCULAR HGB CONC 34.1 g/dl (32.0-36.5); PLATELET COUNT, AUTOMATED 156 10^3/uL (150-450); RED BLOOD COUNT 3.17 10^6/uL (4.30-6.10); WHITE BLOOD COUNT 10.6 10^3/uL (4.0-10.0)
[2022-03-18 05:37] LABS: ALBUMIN 1.8 GM/DL (3.2-5.2); CALCIUM LEVEL 6.8 MG/DL (8.8-10.2); CREATININE FOR GFR 5.09 MG/DL (0.70-1.30); GLOMERULAR FILTRATION RATE 11.8 (>42); MAGNESIUM LEVEL 1.7 MG/DL (1.8-2.4); TOTAL PROTEIN 4.4 GM/DL (6.4-8.2)
[2022-03-18] MEDS ORDERED: SODIUM CHLORIDE 0.9% 1000ML IV PRN (06:00)
[2022-03-18] MEDS: INSULIN LISPRO (NovoLOG) PER UNIT SC SCH ×4 (06:39→21:00)
[2022-03-18] MEDS: CYANOCOBALAMIN 500 MCG TAB PO SCH (06:40)
[2022-03-18] MEDS: PANTOPRAZOLE 40MG TAB (PROTONIX) PO SCH ×2 (06:40→22:01)
[2022-03-18] MEDS: CALCITRIOL 0.25 MCG CAP (S0169) PO SCH (06:40)
[2022-03-18] MEDS: SODIUM CHLORIDE 0.9% INJ 10 ML SYR IV SCH (06:41)
[2022-03-18] MEDS ORDERED: fentaNYL 100 MCG/2 ML INJECTION As Ordered ONE (07:04)
[2022-03-18] MEDS ORDERED: MIDAZOLAM INJ 2MG/2ML VIAL (J2250 PER 1MG) As Ordered ONE (07:04)
[2022-03-18] MEDS ORDERED: LIDOCAINE 1% MDV 20ML VIAL As Ordered ONE (07:04)
[2022-03-18] MEDS: CREON-24 CAPSULE PO SCH ×3 (07:05→17:49)
[2022-03-18] MEDS ORDERED: VANCOMYCIN 1000MG/20ML VIAL As Ordered ONE (07:31)
[2022-03-18] MEDS ORDERED: diphenhydrAMINE 50MG/ML VIAL (J1200) As Ordered ONE (08:03)
[2022-03-18 08:41] VITALS: BP 135/61
[2022-03-18 16:05] VITALS: BP 134/62
[2022-03-18 16:06] VITALS: BP_SYST 138; BP_SYST 146; BP_SYST 150; BP_DIAS 56; BP_DIAS 70; BP_DIAS 78
[2022-03-18 20:00] VITALS: BP 138/61
[2022-03-18] MEDS ORDERED: MORPHINE 2 MG/ML 1ML VIAL IV PRN (21:30)
[2022-03-18] MEDS: amLODIPine 5 MG TAB PO SCH (22:00)
[2022-03-19 04:00] VITALS: BP 128/60
[2022-03-19 05:16] LABS: HEMATOCRIT 25.5 % (42.0-52.0); HEMOGLOBIN 8.5 g/dl (13.5-17.5); MEAN CORPUSCULAR HEMOGLOBIN 30.2 pg (27.0-33.0); MEAN CORPUSCULAR HGB CONC 33.3 g/dl (32.0-36.5); MEAN CORPUSCULAR VOLUME 90.7 fl (80.0-96.0); PLATELET COUNT, AUTOMATED 126 10^3/uL (150-450); RED BLOOD COUNT 2.81 10^6/uL (4.30-6.10); WHITE BLOOD COUNT 8.4 10^3/uL (4.0-10.0)
[2022-03-19 05:43] LABS: ALBUMIN 1.6 GM/DL (3.2-5.2); CALCIUM LEVEL 6.9 MG/DL (8.8-10.2); CREATININE FOR GFR 3.89 MG/DL (0.70-1.30); GLOMERULAR FILTRATION RATE 16.1 (>42); MAGNESIUM LEVEL 1.7 MG/DL (1.8-2.4); POTASSIUM SERUM 3.6 MEQ/L (3.5-5.1); TOTAL PROTEIN 3.8 GM/DL (6.4-8.2)
[2022-03-19] MEDS: INSULIN LISPRO (NovoLOG) PER UNIT SC SCH ×4 (06:38→21:00)
[2022-03-19] MEDS: CALCITRIOL 0.25 MCG CAP (S0169) PO SCH (06:54)
[2022-03-19] MEDS: PANTOPRAZOLE 40MG TAB (PROTONIX) PO SCH ×2 (06:54→21:12)
[2022-03-19] MEDS: CREON-24 CAPSULE PO SCH ×3 (06:54→17:15)
[2022-03-19] MEDS: CYANOCOBALAMIN 500 MCG TAB PO SCH (06:54)
[2022-03-19 07:49] VITALS: BP 124/60
[2022-03-19] MEDS: SODIUM CHLORIDE 0.9% INJ 10 ML SYR IV SCH (08:03)
[2022-03-19 16:00] VITALS: BP 126/62
[2022-03-19] MEDS ORDERED: SODIUM CHLORIDE 0.9% 1000ML IV PRN (20:20)
[2022-03-19 20:29] VITALS: BP 127/68
[2022-03-19 21:12] VITALS: BP 127/68
[2022-03-19] MEDS: amLODIPine 5 MG TAB PO SCH (21:12)
[2022-03-20 03:29] VITALS: BP 126/63
[2022-03-20 04:39] LABS: HEMATOCRIT 26.5 % (42.0-52.0); HEMOGLOBIN 8.7 g/dl (13.5-17.5); MEAN CORPUSCULAR HEMOGLOBIN 29.9 pg (27.0-33.0); MEAN CORPUSCULAR HGB CONC 32.8 g/dl (32.0-36.5); MEAN CORPUSCULAR VOLUME 91.1 fl (80.0-96.0); PLATELET COUNT, AUTOMATED 106 10^3/uL (150-450); RED BLOOD COUNT 2.91 10^6/uL (4.30-6.10); WHITE BLOOD COUNT 9.3 10^3/uL (4.0-10.0)
[2022-03-20 05:07] LABS: ALBUMIN 1.5 GM/DL (3.2-5.2); CALCIUM LEVEL 7.1 MG/DL (8.8-10.2); CREATININE FOR GFR 3.02 MG/DL (0.70-1.30); GLOMERULAR FILTRATION RATE 21.5 (>42); POTASSIUM SERUM 3.2 MEQ/L (3.5-5.1)
[2022-03-20 05:08] LABS: PHOSPHORUS LEVEL 2.9 MG/DL (2.5-4.9)
[2022-03-20] MEDS: INSULIN LISPRO (NovoLOG) PER UNIT SC SCH ×2 (06:50→12:07)
[2022-03-20] MEDS: CREON-24 CAPSULE PO SCH ×2 (06:59→12:06)
[2022-03-20] MEDS: CALCITRIOL 0.25 MCG CAP (S0169) PO SCH (07:02)
[2022-03-20] MEDS: CYANOCOBALAMIN 500 MCG TAB PO SCH (07:02)
[2022-03-20] MEDS: PANTOPRAZOLE 40MG TAB (PROTONIX) PO SCH (07:02)
[2022-03-20] MEDS ORDERED: POTASSIUM CHLORIDE 10MEQ SR TABLET PO ONE (07:30)
[2022-03-20 07:48] VITALS: BP 140/69
[2022-03-20] MEDS: SODIUM CHLORIDE 0.9% INJ 10 ML SYR IV SCH (11:51)
[2022-03-20] MEDS ORDERED: CALC1CAP31 PO (11:53)
[2022-03-20] MEDS ORDERED: PANT40TA29 PO (11:53)
[2022-03-20] MEDS ORDERED: GLIP2.5T6 PO (11:53)
[2022-03-20] MEDS ORDERED: AMLO1TAB24 PO (11:53)
[2022-03-20 11:55] VITALS: BP 115/75
[2022-03-20 14:50] VITALS: BP 82/63
[2022-03-20 15:22] VITALS: BP 125/76
[2022-03-20 16:26] VITALS: BP 110/59
[2022-03-20] MEDS ORDERED: SODIUM CHLORIDE 0.9% 1000ML IV PRN (16:35)
== END 2022-03-20 16:51 | disposition home health service (06) | DRG 811 ==
LOC: M ED 19:03 → M ED INP 22:38 → ENRESERV 03-13 16:09 → M PCU 03-13 18:32
PROVIDERS: ADMIT Family Medicine; ATTEND Internal Medicine
PROC: 30233N1 Transfusion of Nonautologous Red Blood Cells into Peripheral Vein, Percutaneous Approach (ICD-10-PCS; 2022-03-12)
PROC: 0DJ08ZZ Inspection of Upper Intestinal Tract, Via Natural or Artificial Opening Endoscopic (ICD-10-PCS; principal; 2022-03-14 14:52)
PROC: 0JH63XZ Insertion of Tunneled Vascular Access Device into Chest Subcutaneous Tissue and Fascia, Percutaneous Approach (ICD-10-PCS; 2022-03-18)
PROC: 02HV33Z Insertion of Infusion Device into Superior Vena Cava, Percutaneous Approach (ICD-10-PCS; 2022-03-18)
PROC: 5A1D70Z Performance of Urinary Filtration, Intermittent, Less than 6 Hours Per Day (ICD-10-PCS; 2022-03-20)
DX: D62 Acute posthemorrhagic anemia (principal); N18.6 End stage renal disease; N17.9 Acute kidney failure, unspecified; K31.1 Adult hypertrophic pyloric stenosis; E87.2 Acidosis; C25.9 Malignant neoplasm of pancreas, unspecified; E46 Unspecified protein-calorie malnutrition; K92.2 Gastrointestinal hemorrhage, unspecified; I12.0 Hypertensive chronic kidney disease with stage 5 chronic kidney disease or end stage renal disease; E11.43 Type 2 diabetes mellitus with diabetic autonomic (poly)neuropathy; K31.84 Gastroparesis; D63.0 Anemia in neoplastic disease; E11.22 Type 2 diabetes mellitus with diabetic chronic kidney disease; K44.9 Diaphragmatic hernia without obstruction or gangrene; K21.00 Gastro-esophageal reflux disease with esophagitis, without bleeding; D63.1 Anemia in chronic kidney disease; E87.5 Hyperkalemia; I95.1 Orthostatic hypotension; R74.01 Elevation of levels of liver transaminase levels; Z79.84 Long term (current) use of oral hypoglycemic drugs; Z79.899 Other long term (current) drug therapy; Z79.52 Long term (current) use of systemic steroids; Z88.0 Allergy status to penicillin; Z85.47 Personal history of malignant neoplasm of testis; Z92.21 Personal history of antineoplastic chemotherapy; Z99.2 Dependence on renal dialysis

== ENCOUNTER 2022-03-30 10:42 | Inpatient (IN) | payer MEDICARE, OTHER ==
[2022-03-30] VITALS (10 sets, daily range): BP systolic 84–109; BP diastolic 53–57
[~2022-03-30] VITALS: Ht 167.6 cm; Wt 65.3 kg
[~2022-03-30 10:42] MED LIST changes: +AMLO1TAB24 PO; +JARD1TAB PO; +PANT40TA29 PO; +TAMS1CAP17 PO
[2022-03-30 11:51] LABS: HEMATOCRIT 25.1 % (42.0-52.0); HEMOGLOBIN 7.5 g/dl (13.5-17.5); MEAN CORPUSCULAR HEMOGLOBIN 29.8 pg (27.0-33.0); MEAN CORPUSCULAR HGB CONC 29.9 g/dl (32.0-36.5); MEAN CORPUSCULAR VOLUME 99.6 fl (80.0-96.0); RED BLOOD COUNT 2.52 10^6/uL (4.30-6.10); WHITE BLOOD COUNT 12.1 10^3/uL (4.0-10.0)
[2022-03-30] MEDS ORDERED: SODIUM CHLORIDE 0.9% INJ 10 ML SYR IV PRN (11:55)
[2022-03-30 12:15] LABS: PLATELET COUNT, AUTOMATED 56 10^3/uL (150-450)
[2022-03-30 12:18] LABS: LYMPHOCYTES 3 % (16-44); METAMYELOCYTES 2 % (0-0); MONOCYTES 1 % (0-5); NEUTROPHILS 87 % (28-66)
[2022-03-30 12:19] LABS: ANISOCYTOSIS 1+; PLATELET ESTIMATE DECREASED (NORMAL)
[2022-03-30 12:28] LABS: INR 1.24
[2022-03-30 12:29] LABS: PARTIAL THROMBOPLASTIN TIME 35.5 SECONDS (25.9-37.0)
[2022-03-30 12:39] LABS: RSV AMPLIFICATION NEGATIVE (NEGATIVE)
[2022-03-30 13:01] LABS: CK-MB VALUE MASS < 1.0 NG/ML (<3.6); CPK CREATINE PHOSPHOKINASE 60 U/L (39-308); MB/CK RELATIVE INDEX 1.67 (< OR =4)
[2022-03-30 13:04] LABS: ALBUMIN 1.8 GM/DL (3.2-5.2); BILIRUBIN,DIRECT 3.8 MG/DL (0.0-0.2); BILIRUBIN,TOTAL 5.1 MG/DL (0.2-1.0); CALCIUM LEVEL 7.5 MG/DL (8.8-10.2); CREATININE FOR GFR 2.48 MG/DL (0.70-1.30); POTASSIUM SERUM 2.7 MEQ/L (3.5-5.1); THYROID STIMULATING HORMONE 2.65 uIU/ML (0.358-3.740); TOTAL PROTEIN 4.4 GM/DL (6.4-8.2)
[2022-03-30] MEDS ORDERED: NS 1,800 ML in IV 1 EA IV ONE (13:10)
[2022-03-30] MEDS ORDERED: LevoFLOXacin IV 750 MG in IV 1 EA IV ONE (13:15)
[2022-03-30] MEDS ORDERED: ISOVUE-370 76% 100ML VIAL As Ordered ONE (13:28)
[2022-03-30 14:19] LABS: ABG BASE EXCESS 6.9 (-2.0-2.0); ABG HCO3 29.3 MEQ/L (22.0-26.0); ABG O2 SATURATION 92.2 % (95.0-99.0); ABG PARTIAL PRESSURE CO2 32.3 mmHg (35.0-45.0); ABG PARTIAL PRESSURE O2 58.5 mmHg (75.0-100.0); ABG STANDARD HCO3 30.7 MEQ/L (22.0-26.0); ABG TOTAL CO2 30.3 MEQ/L (23.0-31.0); ABG pH (ARTERIAL) 7.576 UNITS (7.350-7.450)
[2022-03-30 14:42] LABS: C REACTIVE PROTEIN QUANTITATIV 3.34 MG/DL (0.00-0.30)
[2022-03-30] MEDS ORDERED: DIGOXIN INJ 0.5 MG/2 ML AMP (J1160) IV ONE (16:00)
[2022-03-30] MEDS ORDERED: KCL 20MEQ IN 100ML SWI (KRUN) 20 MEQ in IV 1 EA IV ONE ×2 (16:10)
[2022-03-30] MEDS ORDERED: POTASSIUM CHLORIDE 10MEQ SR TABLET PO ONE (16:50)
[2022-03-30] MEDS ORDERED: GLIP2.5T6 PO (16:51)
[2022-03-30] MEDS ORDERED: PANT-23 PO (16:51)
[2022-03-30] MEDS ORDERED: CALC1CAP31 PO (16:54)
[2022-03-30] MEDS ORDERED: ALLO100T PO (16:54)
[2022-03-30] MEDS ORDERED: AMIODARONE HCL 150 MG in IV 1 EA IV ONE ×2 (16:55→20:00)
[2022-03-30] MEDS ORDERED: HOME MED LIST COMPLETE! XX SCH (16:55)
[2022-03-30] MEDS ORDERED: ACETAMINOPHEN TAB 650MG DOSE (2X325MG) PO ONE (17:00)
[2022-03-30] MEDS ORDERED: MOM 30ML SUSPENSION UDC PO PRN (17:00)
[2022-03-30] MEDS ORDERED: MAALOX 30 ML SUSP *UDC PO PRN (17:00)
[2022-03-30] MEDS ORDERED: CEFEPIME HCL 2 GM in D5W MINI-BAG PLUS 50 ML IV SCH (17:20)
[2022-03-30] MEDS ORDERED: VANCOMYCIN HCL 1,000 MG, VIAL MATE ADAPTER 1 EACH in NS 250 ML IV SCH (17:25)
[2022-03-30] MEDS: CREON-12 CAPSULE PO SCH (18:00)
[2022-03-30] MEDS: CREON-24 CAPSULE PO SCH (18:00)
[2022-03-30] MEDS ORDERED: VANCOMYCIN HCL 750 MG, VIAL MATE ADAPTER 1 EACH in D5W 250 ML IV ONE (20:00)
[2022-03-30] MEDS ORDERED: VANCOMYCIN HCL 500 MG in D5W MINI-BAG PLUS 100 ML IV ONE (21:00)
[2022-03-30] MEDS: CEFEPIME HCL 1 GM in D5W MINI-BAG PLUS 50 ML IV SCH (21:34)
[2022-03-31] VITALS (10 sets, daily range): BP systolic 110–138; BP diastolic 56–64; O2SAT 93–97
[2022-03-31] MEDS ORDERED: GLUCOSE 4GM CHEW TABLET PO PRN (01:55)
[2022-03-31] MEDS ORDERED: GLUCAGON INJ 1MG VIAL SC PRN (01:55)
[2022-03-31] MEDS ORDERED: DEXTROSE 50% 50 ML SYRINGE IV PRN (01:55)
[2022-03-31 05:24] LABS: BASO % 0.2 % (0.0-1.0); HEMATOCRIT 24.9 % (42.0-52.0); HEMOGLOBIN 8.1 g/dl (13.5-17.5); LYMPH # 0.8 10^3/uL (1.5-5.0); LYMPH % 7.1 % (24.0-44.0); MEAN CORPUSCULAR HGB CONC 32.5 g/dl (32.0-36.5); MEAN CORPUSCULAR VOLUME 92.2 fl (80.0-96.0); MONO # 0.6 10^3/uL (0.0-0.8); NEUTROPHILS # 10.2 10^3/uL (1.5-8.5); NEUTROPHILS % 86.7 % (36.0-66.0); WHITE BLOOD COUNT 11.7 10^3/uL (4.0-10.0)
[2022-03-31 05:28] LABS: PLATELET COUNT, AUTOMATED 66 10^3/uL (150-450)
[2022-03-31 05:52] LABS: ALBUMIN 1.3 GM/DL (3.2-5.2); CALCIUM LEVEL 6.2 MG/DL (8.8-10.2); CREATININE FOR GFR 2.74 MG/DL (0.70-1.30); GLOMERULAR FILTRATION RATE 24.1 (>42); MAGNESIUM LEVEL 1.8 MG/DL (1.8-2.4); POTASSIUM SERUM 4.1 MEQ/L (3.5-5.1); TOTAL PROTEIN 3.5 GM/DL (6.4-8.2)
[2022-03-31] MEDS: INSULIN LISPRO (NovoLOG) PER UNIT SC SCH ×3 (07:30→17:30)
[2022-03-31] MEDS: CREON-12 CAPSULE PO SCH ×3 (08:00→17:48)
[2022-03-31] MEDS: CREON-24 CAPSULE PO SCH ×3 (08:00→17:48)
[2022-03-31 08:22] LABS: VANCOMYCIN RANDOM 17.2 UG/ML
[2022-03-31] MEDS: allopurinoL 100 MG TAB PO SCH (08:31)
[2022-03-31] MEDS: SODIUM CHLORIDE 0.9% INJ 10 ML SYR IV SCH (08:31)
[2022-03-31] MEDS ORDERED: FERROUS SULFATE 325MG TAB PO SCH (09:00)
[2022-03-31] MEDS ORDERED: cefTRIAXone SOD 1 GM in D5W MINI-BAG PLUS 50 ML IV SCH (18:00)
[2022-03-31] MEDS: CEFEPIME HCL 1 GM in D5W MINI-BAG PLUS 50 ML IV SCH (18:05)
[2022-03-31] MEDS: MEROPENEM INJ 1 GM in IV 1 EA IV SCH (19:55)
[2022-04-01] VITALS (25 sets, daily range): BP systolic 111–141; BP diastolic 56–74; O2SAT 93–98
[2022-04-01] MEDS: MEROPENEM INJ 1 GM in IV 1 EA IV SCH (04:00)
[2022-04-01 05:53] LABS: BASO % 0.2 % (0.0-1.0); EOS # 0.1 10^3/uL (0.0-0.5); EOS % 1.2 % (0.0-3.0); HEMATOCRIT 22.1 % (42.0-52.0); HEMOGLOBIN 7.2 g/dl (13.5-17.5); LYMPH # 0.6 10^3/uL (1.5-5.0); LYMPH % 7.1 % (24.0-44.0); MEAN CORPUSCULAR HEMOGLOBIN 30.1 pg (27.0-33.0); MEAN CORPUSCULAR HGB CONC 32.6 g/dl (32.0-36.5); MEAN CORPUSCULAR VOLUME 92.5 fl (80.0-96.0); MONO # 0.6 10^3/uL (0.0-0.8); NEUTROPHILS # 7.1 10^3/uL (1.5-8.5); NEUTROPHILS % 83.1 % (36.0-66.0); RED BLOOD COUNT 2.39 10^6/uL (4.30-6.10); WHITE BLOOD COUNT 8.6 10^3/uL (4.0-10.0)
[2022-04-01 05:57] LABS: PLATELET COUNT, AUTOMATED 73 10^3/uL (150-450)
[2022-04-01] MEDS ORDERED: SODIUM CHLORIDE 0.9% 1000ML IV PRN (06:00)
[2022-04-01] MEDS: allopurinoL 100 MG TAB PO SCH (06:14)
[2022-04-01] MEDS: SODIUM CHLORIDE 0.9% INJ 10 ML SYR IV SCH (06:16)
[2022-04-01 06:51] LABS: BILIRUBIN,TOTAL 2.5 MG/DL (0.2-1.0); CALCIUM LEVEL 5.5 MG/DL (8.8-10.2); CREATININE FOR GFR 2.59 MG/DL (0.70-1.30); GLOMERULAR FILTRATION RATE 25.7 (>42); MAGNESIUM LEVEL 1.5 MG/DL (1.8-2.4); POTASSIUM SERUM 3.1 MEQ/L (3.5-5.1); TOTAL PROTEIN 2.9 GM/DL (6.4-8.2)
[2022-04-01] MEDS: INSULIN LISPRO (NovoLOG) PER UNIT SC SCH ×3 (06:55→17:30)
[2022-04-01] MEDS: CREON-24 CAPSULE PO SCH ×3 (07:32→18:32)
[2022-04-01] MEDS: CREON-12 CAPSULE PO SCH ×3 (07:32→18:32)
[2022-04-01] MEDS ORDERED: POTASSIUM CHLORIDE 10MEQ SR TABLET PO ONE (07:45)
[2022-04-01 07:50] LABS: VANCOMYCIN RANDOM 10.5 UG/ML
[2022-04-01] MEDS ORDERED: CALCIUM GLUCONATE 1,000 MG in D5W MINI-BAG PLUS 100 ML IV ONE (07:50)
[2022-04-01] MEDS ORDERED: KCL 10MEQ/100ML SWI (KRUN) 10 MEQ in IV 1 EA IV SCH (08:00)
[2022-04-01] MEDS ORDERED: MAG SULF 1GM/100ML (MAG RUN) 1 GM in IV 1 EA IV ONE (10:00)
[2022-04-01 14:05] LABS: HEMATOCRIT 33.2 % (42.0-52.0); MEAN CORPUSCULAR HEMOGLOBIN 30.2 pg (27.0-33.0); MEAN CORPUSCULAR HGB CONC 32.5 g/dl (32.0-36.5); MEAN CORPUSCULAR VOLUME 92.7 fl (80.0-96.0); RED BLOOD COUNT 3.58 10^6/uL (4.30-6.10); WHITE BLOOD COUNT 10.8 10^3/uL (4.0-10.0)
[2022-04-01 14:06] LABS: PLATELET COUNT, AUTOMATED 64 10^3/uL (150-450)
[2022-04-01 14:07] LABS: HEMOGLOBIN 10.8 g/dl (13.5-17.5)
[2022-04-01 14:34] LABS: ALBUMIN 1.7 GM/DL (3.2-5.2); BILIRUBIN,TOTAL 4.5 MG/DL (0.2-1.0); CALCIUM LEVEL 7.2 MG/DL (8.8-10.2); CREATININE FOR GFR 1.86 MG/DL (0.70-1.30); GLOMERULAR FILTRATION RATE 37.7 (>42); PERCENT SATURATION 58.8 % (19.7-50.0); POTASSIUM SERUM 4.1 MEQ/L (3.5-5.1); TOTAL PROTEIN 4.5 GM/DL (6.4-8.2)
[2022-04-01] MEDS: SODIUM CHLORIDE 0.9% INJ 10 ML SYR IV PRN (16:19)
[2022-04-01] MEDS ORDERED: MEROPENEM INJ 1 GM in IV 1 EA IV SCH (18:00)
[2022-04-01 18:07] LABS: APPEARANCE, URINE CLOUDY (CLEAR); BACTERIA, URINE AUTO 1+ (NEGATIVE); BILIRUBIN, URINE AUTO NEGATIVE (NEGATIVE); BLOOD, URINE BLOOD 1+ (NEGATIVE); COLOR, URINE AMBER (YELLOW); GLUCOSE, URINE (UA) AUTO NEGATIVE (NEGATIVE); KETONE, URINE AUTO NEGATIVE (NEGATIVE); LEUKOCYTE ESTERASE, URINE AUTO 3+ (NEGATIVE); NITRITE, URINE AUTO NEGATIVE (NEGATIVE); PROTEIN, URINE AUTO 2+ mg/dL (NEGATIVE); RBC, URINE AUTO 10 /HPF (0-3); SPECIFIC GRAVITY URINE AUTO 1.016 (1.002-1.035); SQUAMOUS EPITHELIAL CELL UR AU 0 /HPF (0-6); UROBILINOGEN, URINE AUTO 0.2 mg/dL (0.0-2.0); WBC, URINE AUTO TNTC /HPF (0-3)
[2022-04-02] VITALS (16 sets, daily range): BP systolic 119–148; BP diastolic 62–77; O2SAT 94–98
[2022-04-02 05:56] LABS: BASO # 0.1 10^3/uL (0.0-0.2); BASO % 0.6 % (0.0-1.0); EOS # 0.1 10^3/uL (0.0-0.5); HEMATOCRIT 27.8 % (42.0-52.0); HEMOGLOBIN 8.9 g/dl (13.5-17.5); LYMPH # 0.8 10^3/uL (1.5-5.0); LYMPH % 9.8 % (24.0-44.0); MEAN CORPUSCULAR HEMOGLOBIN 29.3 pg (27.0-33.0); MEAN CORPUSCULAR VOLUME 91.4 fl (80.0-96.0); MONO # 0.6 10^3/uL (0.0-0.8); NEUTROPHILS # 6.5 10^3/uL (1.5-8.5); NEUTROPHILS % 80.1 % (36.0-66.0); RED BLOOD COUNT 3.04 10^6/uL (4.30-6.10); WHITE BLOOD COUNT 8.1 10^3/uL (4.0-10.0)
[2022-04-02 06:07] LABS: PLATELET COUNT, AUTOMATED 60 10^3/uL (150-450)
[2022-04-02 06:26] LABS: ALBUMIN 1.3 GM/DL (3.2-5.2); BILIRUBIN,TOTAL 4.3 MG/DL (0.2-1.0); CREATININE FOR GFR 2.48 MG/DL (0.70-1.30); MAGNESIUM LEVEL 2.1 MG/DL (1.8-2.4); POTASSIUM SERUM 4.4 MEQ/L (3.5-5.1); TOTAL PROTEIN 3.8 GM/DL (6.4-8.2)
[2022-04-02] MEDS ORDERED: DOCUSATE SODIUM 100MG CAPSULE PO SCH (09:00)
[2022-04-02] MEDS ORDERED: FERROUS SULFATE 325MG TAB PO SCH (09:00)
[2022-04-02] MEDS: INSULIN LISPRO (NovoLOG) PER UNIT SC SCH ×3 (10:10→17:03)
[2022-04-02] MEDS: CREON-24 CAPSULE PO SCH ×3 (10:10→17:31)
[2022-04-02] MEDS: CREON-12 CAPSULE PO SCH ×3 (10:10→17:31)
[2022-04-02] MEDS: allopurinoL 100 MG TAB PO SCH (10:30)
[2022-04-02] MEDS: SODIUM CHLORIDE 0.9% INJ 10 ML SYR IV SCH (10:31)
[2022-04-02] MEDS ORDERED: LIDOCAINE 1% MDV 20ML VIAL As Ordered ONE (11:20)
[2022-04-02 12:09] LABS: APPEARANCE, BODY FLUID HAZY (CLEAR); ASCITES FL COLOR YELLOW (COLORLESS); SOURCE, BODY FLUID ASCITES; SPEC. GRAVITY BODY FLUIDS 1.012 (NOT ESTABLISHED)
[2022-04-02 12:31] LABS: SOURCE, BODY FLUID ALBUMIN ASCITES; SOURCE, BODY FLUID GLUCOSE ASCITES; SOURCE, BODY FLUID TOT PROTEIN ASCITES; TOTAL PROTEIN, BODY FLUID 0.8 G/DL (NOT ESTABLISHED)
[2022-04-02] MEDS ORDERED: CALCIUM GLUCONATE 1,000 MG in D5W MINI-BAG PLUS 100 ML IV ONE (12:50)
[2022-04-02 14:28] LABS: CLOSTRIDIUM DIFFICILE PCR NEGATIVE (NEGATIVE)
[2022-04-02] MEDS: ACETAMINOPHEN TAB 650MG DOSE (2X325MG) PO PRN ×2 (14:56→23:15)
[2022-04-02] MEDS ORDERED: PHENAZOPYRIDINE 100 MG TAB PO SCH (16:00)
[2022-04-02] MEDS: ceFAZolin SOD 2 GM in IV 1 EA IV SCH (17:02)
[2022-04-02] MEDS: LACTOBACILLUS ACIDOPHILUS CAP (BACID) PO SCH (18:07)
[2022-04-02] MEDS: VANCOMYCIN ORAL SOL 250MG/5ML ORAL SYRINGE PO SCH (20:45)
[2022-04-03] VITALS (11 sets, daily range): BP systolic 86–137; BP diastolic 56–80; O2SAT 93–96
[2022-04-03] MEDS: TAMSULOSIN 0.4 MG CAP PO SCH (04:27)
[2022-04-03 05:57] LABS: HEMATOCRIT 35.8 % (42.0-52.0); MEAN CORPUSCULAR HEMOGLOBIN 29.3 pg (27.0-33.0); MEAN CORPUSCULAR HGB CONC 32.4 g/dl (32.0-36.5); MEAN CORPUSCULAR VOLUME 90.4 fl (80.0-96.0); RED BLOOD COUNT 3.96 10^6/uL (4.30-6.10); WHITE BLOOD COUNT 11.6 10^3/uL (4.0-10.0)
[2022-04-03 06:05] LABS: PLATELET COUNT, AUTOMATED 96 10^3/uL (150-450)
[2022-04-03 06:06] LABS: HEMOGLOBIN 11.6 g/dl (13.5-17.5)
[2022-04-03 06:25] LABS: ALBUMIN 1.5 GM/DL (3.2-5.2); BILIRUBIN,TOTAL 7.5 MG/DL (0.2-1.0); CALCIUM LEVEL 7.3 MG/DL (8.8-10.2); CREATININE FOR GFR 2.95 MG/DL (0.70-1.30); GLOMERULAR FILTRATION RATE 22.1 (>42); POTASSIUM SERUM 4.1 MEQ/L (3.5-5.1); TOTAL PROTEIN 4.3 GM/DL (6.4-8.2)
[2022-04-03] MEDS: INSULIN LISPRO (NovoLOG) PER UNIT SC SCH ×3 (06:31→18:59)
[2022-04-03] MEDS: VANCOMYCIN ORAL SOL 250MG/5ML ORAL SYRINGE PO SCH ×2 (06:47→21:32)
[2022-04-03] MEDS: CREON-24 CAPSULE PO SCH ×3 (06:48→18:58)
[2022-04-03] MEDS: CREON-12 CAPSULE PO SCH ×3 (06:48→18:58)
[2022-04-03] MEDS: LACTOBACILLUS ACIDOPHILUS CAP (BACID) PO SCH ×2 (06:48→18:58)
[2022-04-03] MEDS: allopurinoL 100 MG TAB PO SCH (06:49)
[2022-04-03] MEDS: SODIUM CHLORIDE 0.9% INJ 10 ML SYR IV SCH (06:50)
[2022-04-03 07:00] LABS: BASOPHILS 2 % (0-1); LYMPHOCYTES 5 % (16-44); MONOCYTES 6 % (0-5); NEUTROPHILS 87 % (28-66); PLATELET ESTIMATE DECREASED (NORMAL)
[2022-04-03] MEDS ORDERED: DARBEPOETIN 200MCG/0.4ML *DIALYSIS* SYRINGE (J0882 PER 1MCG) IV SCH (09:00)
[2022-04-03] MEDS: FLUCONAZOLE 50MG TABLET PO SCH (18:59)
[2022-04-03] MEDS: ceFAZolin SOD 2 GM in IV 1 EA IV SCH (21:32)
[2022-04-04] VITALS (7 sets, daily range): BP systolic 101–135; BP diastolic 59–71
[2022-04-04 05:32] LABS: BASO # 0.1 10^3/uL (0.0-0.2); BASO % 0.9 % (0.0-1.0); EOS # 0.1 10^3/uL (0.0-0.5); EOS % 0.6 % (0.0-3.0); HEMATOCRIT 30.2 % (42.0-52.0); HEMOGLOBIN 9.7 g/dl (13.5-17.5); LYMPH # 1.3 10^3/uL (1.5-5.0); LYMPH % 11.2 % (24.0-44.0); MEAN CORPUSCULAR HEMOGLOBIN 29.8 pg (27.0-33.0); MEAN CORPUSCULAR HGB CONC 32.1 g/dl (32.0-36.5); MEAN CORPUSCULAR VOLUME 92.6 fl (80.0-96.0); MONO # 0.7 10^3/uL (0.0-0.8); NEUTROPHILS # 8.8 10^3/uL (1.5-8.5); NEUTROPHILS % 78.8 % (36.0-66.0); RED BLOOD COUNT 3.26 10^6/uL (4.30-6.10); WHITE BLOOD COUNT 11.2 10^3/uL (4.0-10.0)
[2022-04-04 05:54] LABS: PLATELET COUNT, AUTOMATED 33 10^3/uL (150-450)
[2022-04-04 06:00] LABS: ALBUMIN 1.4 GM/DL (3.2-5.2); CREATININE FOR GFR 2.39 MG/DL (0.70-1.30); GLOMERULAR FILTRATION RATE 28.2 (>42); POTASSIUM SERUM 3.9 MEQ/L (3.5-5.1); TOTAL PROTEIN 4.2 GM/DL (6.4-8.2)
[2022-04-04] MEDS: SODIUM CHLORIDE 0.9% INJ 10 ML SYR IV PRN (06:29)
[2022-04-04] MEDS: TAMSULOSIN 0.4 MG CAP PO SCH (11:13)
[2022-04-04] MEDS: oxyBUTYnin 5 MG TAB PO PRN (11:13)
[2022-04-04] MEDS: FLUCONAZOLE 50MG TABLET PO SCH (11:14)
[2022-04-04] MEDS: INSULIN LISPRO (NovoLOG) PER UNIT SC SCH ×3 (11:14→17:33)
[2022-04-04] MEDS: LACTOBACILLUS ACIDOPHILUS CAP (BACID) PO SCH ×2 (11:14→17:33)
[2022-04-04] MEDS: CREON-24 CAPSULE PO SCH ×4 (11:14→17:33)
[2022-04-04] MEDS: CREON-12 CAPSULE PO SCH ×4 (11:14→17:33)
[2022-04-04] MEDS: VANCOMYCIN ORAL SOL 250MG/5ML ORAL SYRINGE PO SCH ×2 (11:15→21:05)
[2022-04-04] MEDS: SODIUM CHLORIDE 0.9% INJ 10 ML SYR IV SCH (11:16)
[2022-04-04] MEDS: allopurinoL 100 MG TAB PO SCH (11:22)
[2022-04-04] MEDS: ceFAZolin SOD 1 GM in D5W MINI-BAG PLUS 50 ML IV SCH (21:05)
[2022-04-05 03:48] VITALS: BP 136/73
[2022-04-05 04:43] LABS: BASO # 0.1 10^3/uL (0.0-0.2); BASO % 0.6 % (0.0-1.0); EOS # 0.1 10^3/uL (0.0-0.5); EOS % 0.6 % (0.0-3.0); HEMATOCRIT 28.5 % (42.0-52.0); HEMOGLOBIN 9.1 g/dl (13.5-17.5); LYMPH # 0.9 10^3/uL (1.5-5.0); LYMPH % 9.4 % (24.0-44.0); MEAN CORPUSCULAR HEMOGLOBIN 29.4 pg (27.0-33.0); MEAN CORPUSCULAR HGB CONC 31.9 g/dl (32.0-36.5); MEAN CORPUSCULAR VOLUME 91.9 fl (80.0-96.0); MONO # 0.8 10^3/uL (0.0-0.8); MONO % 7.9 % (2.0-8.0); NEUTROPHILS # 7.8 10^3/uL (1.5-8.5); NEUTROPHILS % 77.3 % (36.0-66.0); PLATELET COUNT, AUTOMATED 60 10^3/uL (150-450)
[2022-04-05 05:10] LABS: ALBUMIN 1.4 GM/DL (3.2-5.2); ALT/SGPT < 6 U/L (12-78); BLOOD UREA NITROGEN 24 MG/DL (7-18); CALCIUM LEVEL 7.1 MG/DL (8.8-10.2); CARBON DIOXIDE LEVEL 24 MEQ/L (21-32); CHLORIDE LEVEL 104 MEQ/L (98-107); CREATININE FOR GFR 2.98 MG/DL (0.70-1.30); GLOMERULAR FILTRATION RATE 21.9 (>42); GLUCOSE, FASTING 86 MG/DL (70-100); MAGNESIUM LEVEL 1.9 MG/DL (1.8-2.4); POTASSIUM SERUM 3.8 MEQ/L (3.5-5.1); SODIUM LEVEL 137 MEQ/L (136-145); TOTAL PROTEIN 4.2 GM/DL (6.4-8.2)
[2022-04-05 07:51] VITALS: BP 131/67
[2022-04-05] MEDS: INSULIN LISPRO (NovoLOG) PER UNIT SC SCH ×3 (10:13→17:39)
[2022-04-05] MEDS: oxyBUTYnin 5 MG TAB PO PRN (10:21)
[2022-04-05] MEDS: FLUCONAZOLE 50MG TABLET PO SCH (10:22)
[2022-04-05] MEDS: LACTOBACILLUS ACIDOPHILUS CAP (BACID) PO SCH ×2 (10:22→17:39)
[2022-04-05] MEDS: VANCOMYCIN ORAL SOL 250MG/5ML ORAL SYRINGE PO SCH ×2 (10:22→20:42)
[2022-04-05] MEDS: TAMSULOSIN 0.4 MG CAP PO SCH (10:22)
[2022-04-05] MEDS: SODIUM CHLORIDE 0.9% INJ 10 ML SYR IV SCH (10:23)
[2022-04-05] MEDS: CREON-24 CAPSULE PO SCH ×3 (10:23→17:39)
[2022-04-05] MEDS: CREON-12 CAPSULE PO SCH ×3 (10:23→17:39)
[2022-04-05] MEDS: allopurinoL 100 MG TAB PO SCH (10:28)
[2022-04-05 12:00] VITALS: BP 130/64
[2022-04-05 16:00] VITALS: BP 122/67
[2022-04-05 20:00] VITALS: BP 115/62
[2022-04-05] MEDS: ceFAZolin SOD 1 GM in D5W MINI-BAG PLUS 50 ML IV SCH (20:43)
[2022-04-06] VITALS (9 sets, daily range): BP systolic 90–125; BP diastolic 50–68
[2022-04-06] MEDS ORDERED: SODIUM CHLORIDE 0.9% 1000ML IV PRN (05:50)
[2022-04-06] MEDS ORDERED: SODIUM CHLORIDE 0.9% 1000ML IV ONE (06:50)
[2022-04-06] MEDS: allopurinoL 100 MG TAB PO SCH (06:57)
[2022-04-06] MEDS: CREON-12 CAPSULE PO SCH ×3 (06:57→18:00)
[2022-04-06] MEDS: CREON-24 CAPSULE PO SCH ×3 (06:57→18:00)
[2022-04-06] MEDS: LACTOBACILLUS ACIDOPHILUS CAP (BACID) PO SCH ×2 (06:57→18:00)
[2022-04-06] MEDS: TAMSULOSIN 0.4 MG CAP PO SCH (06:58)
[2022-04-06] MEDS: VANCOMYCIN ORAL SOL 250MG/5ML ORAL SYRINGE PO SCH ×2 (06:58→21:26)
[2022-04-06] MEDS: SODIUM CHLORIDE 0.9% INJ 10 ML SYR IV SCH (06:58)
[2022-04-06 07:06] LABS: HEMATOCRIT 27.1 % (42.0-52.0); HEMOGLOBIN 8.6 g/dl (13.5-17.5); MEAN CORPUSCULAR HEMOGLOBIN 29.9 pg (27.0-33.0); MEAN CORPUSCULAR HGB CONC 31.7 g/dl (32.0-36.5); MEAN CORPUSCULAR VOLUME 94.1 fl (80.0-96.0); RED BLOOD COUNT 2.88 10^6/uL (4.30-6.10); WHITE BLOOD COUNT 8.7 10^3/uL (4.0-10.0)
[2022-04-06 07:07] LABS: PLATELET COUNT, AUTOMATED 83 10^3/uL (150-450)
[2022-04-06] MEDS: INSULIN LISPRO (NovoLOG) PER UNIT SC SCH ×3 (07:30→17:30)
[2022-04-06 07:36] LABS: ALBUMIN 1.4 GM/DL (3.2-5.2); ALT/SGPT < 6 U/L (12-78); BLOOD UREA NITROGEN 33 MG/DL (7-18); CALCIUM LEVEL 6.9 MG/DL (8.8-10.2); CARBON DIOXIDE LEVEL 21 MEQ/L (21-32); CHLORIDE LEVEL 102 MEQ/L (98-107); CREATININE FOR GFR 3.41 MG/DL (0.70-1.30); GLOMERULAR FILTRATION RATE 18.7 (>42); GLUCOSE, FASTING 156 MG/DL (70-100); MAGNESIUM LEVEL 1.9 MG/DL (1.8-2.4); POTASSIUM SERUM 3.7 MEQ/L (3.5-5.1); SODIUM LEVEL 135 MEQ/L (136-145); TOTAL PROTEIN 3.9 GM/DL (6.4-8.2)
[2022-04-06 08:07] LABS: ANISOCYTOSIS 1+; ATYPICAL LYMPH 1 % (0-5); EOSINOPHILS 1 % (0-3); LYMPHOCYTES 7 % (16-44); METAMYELOCYTES 1 % (0-0); MONOCYTES 6 % (0-5); NEUTROPHILS 81 % (28-66); PLATELET ESTIMATE DECREASED (NORMAL)
[2022-04-06] MEDS: ceFAZolin SOD 1 GM in D5W MINI-BAG PLUS 50 ML IV SCH (21:00)
[2022-04-06] MEDS ORDERED: METOCLOPRAMIDE INJ 10MG/2ML VIAL (J2765 PER 1) IV ONE (21:30)
[2022-04-07] VITALS: BP 96/56
[2022-04-07 04:00] VITALS: BP 105/58
[2022-04-07 07:26] VITALS: BP 128/60
[2022-04-07] MEDS: CREON-12 CAPSULE PO SCH ×2 (08:00→13:40)
[2022-04-07] MEDS: CREON-24 CAPSULE PO SCH ×2 (08:00→13:40)
[2022-04-07 08:31] LABS: MEAN CORPUSCULAR HEMOGLOBIN 30.4 pg (27.0-33.0); MEAN CORPUSCULAR HGB CONC 32.2 g/dl (32.0-36.5); MEAN CORPUSCULAR VOLUME 94.5 fl (80.0-96.0); PLATELET COUNT, AUTOMATED 121 10^3/uL (150-450); RED BLOOD COUNT 2.17 10^6/uL (4.30-6.10)
[2022-04-07 08:36] LABS: HEMATOCRIT 20.5 % (42.0-52.0)
[2022-04-07 08:39] LABS: HEMOGLOBIN 6.6 g/dl (13.5-17.5); WHITE BLOOD COUNT 16.7 10^3/uL (4.0-10.0)
[2022-04-07 08:53] LABS: ALBUMIN 1.5 GM/DL (3.2-5.2); ALT/SGPT < 6 U/L (12-78); BILIRUBIN,TOTAL 3.7 MG/DL (0.2-1.0); BLOOD UREA NITROGEN 34 MG/DL (7-18); CALCIUM LEVEL 7.3 MG/DL (8.8-10.2); CARBON DIOXIDE LEVEL 25 MEQ/L (21-32); CHLORIDE LEVEL 104 MEQ/L (98-107); CREATININE FOR GFR 2.76 MG/DL (0.70-1.30); GLOMERULAR FILTRATION RATE 23.9 (>42); GLUCOSE, FASTING 181 MG/DL (70-100); SODIUM LEVEL 137 MEQ/L (136-145); TOTAL PROTEIN 4.4 GM/DL (6.4-8.2)
[2022-04-07] MEDS ORDERED: FLUCONAZOLE 50MG TABLET PO SCH (09:00)
[2022-04-07 09:28] LABS: HEMATOCRIT 23.7 % (42.0-52.0); HEMOGLOBIN 7.5 g/dl (13.5-17.5); MEAN CORPUSCULAR HGB CONC 31.6 g/dl (32.0-36.5); MEAN CORPUSCULAR VOLUME 94.8 fl (80.0-96.0); PLATELET COUNT, AUTOMATED 137 10^3/uL (150-450); WHITE BLOOD COUNT 20.5 10^3/uL (4.0-10.0)
[2022-04-07] MEDS: VANCOMYCIN ORAL SOL 250MG/5ML ORAL SYRINGE PO SCH (09:48)
[2022-04-07] MEDS: LACTOBACILLUS ACIDOPHILUS CAP (BACID) PO SCH (09:49)
[2022-04-07] MEDS: TAMSULOSIN 0.4 MG CAP PO SCH (09:49)
[2022-04-07] MEDS: allopurinoL 100 MG TAB PO SCH (09:49)
[2022-04-07] MEDS: INSULIN LISPRO (NovoLOG) PER UNIT SC SCH ×2 (09:53→13:40)
[2022-04-07] MEDS: SODIUM CHLORIDE 0.9% INJ 10 ML SYR IV SCH (09:54)
[2022-04-07] MEDS ORDERED: ISOVUE-370 76% 100ML VIAL As Ordered ONE (11:21)
[2022-04-07 11:50] VITALS: BP 120/59
[2022-04-07 15:38] VITALS: BP 113/58
[2022-04-07] MEDS ORDERED: LORazepam 1 MG TAB PO PRN (17:10)
[2022-04-07] MEDS ORDERED: MORPHINE 10MG/0.5ML ORAL CONCENTRATE SOLUTION U/D SL PRN (17:10)
[2022-04-07] MEDS ORDERED: ATROPINE SULFATE 1% OP SOLN 2 ML BTL SL PRN (17:10)
[2022-04-07] MEDS ORDERED: ONDANSETRON 4MG 2ML VIAL IV PRN (17:15)
[2022-04-10] MEDS ORDERED: OXYC1TAB23 PO (15:57)
== END 2022-04-10 13:20 | disposition hospice, home (50) | DRG 919 ==
LOC: M ED 10:42 → M ED INP 16:57 → M PCU 21:15 → M MS5PR 04-07 21:00
PROVIDERS: ADMIT Family Medicine; ATTEND Family Medicine
PROC: 30233N1 Transfusion of Nonautologous Red Blood Cells into Peripheral Vein, Percutaneous Approach (ICD-10-PCS; 2022-03-30)
PROC: 5A1D70Z Performance of Urinary Filtration, Intermittent, Less than 6 Hours Per Day (ICD-10-PCS; principal; 2022-03-31)
PROC: 0W9G3ZX Drainage of Peritoneal Cavity, Percutaneous Approach, Diagnostic (ICD-10-PCS; 2022-04-02)
DX: T85.79XA Infection and inflammatory reaction due to other internal prosthetic devices, implants and grafts, initial encounter (principal); N18.6 End stage renal disease; R65.21 Severe sepsis with septic shock; A41.59 Other Gram-negative sepsis; I12.0 Hypertensive chronic kidney disease with stage 5 chronic kidney disease or end stage renal disease; C25.9 Malignant neoplasm of pancreas, unspecified; E87.2 Acidosis; J90 Pleural effusion, not elsewhere classified; J98.11 Atelectasis; E46 Unspecified protein-calorie malnutrition; E87.1 Hypo-osmolality and hyponatremia; B37.49 Other urogenital candidiasis; E11.22 Type 2 diabetes mellitus with diabetic chronic kidney disease; D50.9 Iron deficiency anemia, unspecified; Z66 Do not resuscitate; Z51.5 Encounter for palliative care; Z99.2 Dependence on renal dialysis; D63.0 Anemia in neoplastic disease; D50.0 Iron deficiency anemia secondary to blood loss (chronic); E83.42 Hypomagnesemia; E88.09 Other disorders of plasma-protein metabolism, not elsewhere classified; E83.51 Hypocalcemia; E87.6 Hypokalemia; I48.91 Unspecified atrial fibrillation; R63.0 Anorexia; Y83.1 Surgical operation with implant of artificial internal device as the cause of abnormal reaction of the patient, or of later complication, without mention of misadventure at the time of the procedure; D63.1 Anemia in chronic kidney disease; Z79.84 Long term (current) use of oral hypoglycemic drugs; Z79.899 Other long term (current) drug therapy; Z88.0 Allergy status to penicillin; Z88.8 Allergy status to other drugs, medicaments and biological substances; R26.81 Unsteadiness on feet; R33.9 Retention of urine, unspecified; E87.70 Fluid overload, unspecified; Z95.828 Presence of other vascular implants and grafts; Z85.47 Personal history of malignant neoplasm of testis